=== PATIENT | female | born 1980 | race Two or more races ===

== ENCOUNTER 2021-10-31 21:26 | Inpatient (IN) | payer MEDICAID ==
[~2021-10-31] VITALS: Ht 162.6 cm; Wt 65.8 kg
--- NOTE | 2021-10-31 22:00 | NUR ---
BIBRA 860 FROM C.O GEN ABD PAIN. PATIENT PRESENTS WITH JAUNDICE. AWAKE, ALERT, AND SLIGHTLY LETHARGIC. ALSO COMPLAINING OF ABDOMINAL PAIN. PATIENT HOOKED UP TO BED SIDE MONITOR. MD AT BEDSIDE.
[2021-10-31 22:25] LABS: BASOPHILS % (AUTO) 0.1 % (0.0-2.0); EOSINOPHILS % (AUTO) 0.3 % (0.0-6.0); HEMATOCRIT 30 % (33-45); HEMOGLOBIN 10.1 g/dL (11.5-14.8); LYMPHOCYTES # (AUTO) 0.9 K/uL (0.8-4.8); LYMPHOCYTES % (AUTO) 4.6 % (20.0-44.0); MEAN CORPUSCULAR HGB CONC 34 g/dl (31.0-36.0); MEAN CORPUSCULAR VOLUME 114 fL (82-100); MONOCYTES # (AUTO) 0.9 K/uL (0.1-1.30); MONOCYTES % (AUTO) 4.8 % (2.0-12.0); NEUTROPHILS # (AUTO) 17.3 K/uL (1.8-8.9); NEUTROPHILS % (AUTO) 90.2 % (43.0-81.0); PLATELET COUNT (AUTO) 166 K/uL (150-450); RED BLOOD CELL COUNT(AUTO) 2.59 MIL/uL (4.0-5.2); WHITE BLOOD COUNT (AUTO) 19.1 K/uL (4.3-11.0)
[2021-10-31] MEDS ORDERED: IV NS 0.9% 1,000 ML BAG IV ONE (22:30)
[2021-10-31] MEDS ORDERED: ONDANSETRON HCL/PF 4 MG/2 ML VIAL IVP ONE (22:30)
--- NOTE | 2021-10-31 22:30 | NUR ---
20G RIGHT UPPER ARM, 22G LEFT WRIST PIV
[2021-10-31] MEDS ORDERED: ONDANSETRON HCL/PF 4 MG/2 ML VIAL ONE (22:35)
[2021-10-31 22:48] LABS: CALCIUM, SERUM 8.1 mg/dL (8.5-10.1); CREATININE 1.9 mg/dL (0.6-1.3)
[2021-10-31 22:50] LABS: POTASSIUM 2.7 mmol/L (3.5-5.1)
[2021-10-31] MEDS ORDERED: POTASSIUM CHLORIDE 10 MEQ/50 ML PREMIXED IVPB FOR PERIPHERAL LINE IV ONE (23:00)
[2021-10-31] MEDS ORDERED: POTASSIUM CHLORIDE 20 MEQ TAB.PRT.SR PO ONE (23:00)
[2021-10-31 23:02] LABS: BILIRUBIN,DIRECT 23.7 mg/dL (0.0-0.2); BILIRUBIN,TOTAL 29.9 mg/dL (0.2-1.0); TOTAL PROTEIN, SERUM 6.6 g/dL (6.4-8.2)
[2021-10-31] MEDS ORDERED: POTASSIUM CL. PREMIX PERIPHER. 50 ML ONE (23:03)
[2021-10-31 23:04] LABS: ALBUMIN 1.4 g/dL (3.4-5.0)
[2021-10-31] MEDS ORDERED: ALBUMIN 25% 50 ML IV ONE (23:19)
[2021-10-31] MEDS ORDERED: LACTULOSE 10 G/15 ML UDC (PYXIS) ONE (23:19)
[2021-10-31] MEDS ORDERED: RIFAXIMIN 200 MG TABLET PO ONE (23:30)
[2021-10-31] MEDS ORDERED: ALBUMIN 25% 12.5 GM/50 ML BOTTLE IV ONE (23:30)
[2021-10-31] MEDS ORDERED: LACTULOSE 10 G/15 ML UDC (PYXIS) PR ONE (23:30)
--- NOTE | 2021-10-31 23:39 | NUR ---
patient taken by radiology for CT via gurney
--- NOTE | 2021-11-01 00:21 | NUR ---
CRITICAL LAB: HEMOGLOBIN 9.2, HCT 27, RBC 2.36 MD MADE AWARE
--- NOTE | 2021-11-01 00:26 | NUR ---
indwelling desouza catheter inserted. sterile procedure observed.
--- NOTE | 2021-11-01 00:27 | NUR ---
rifaximin 550 mg not available per distribution warehouse manager. MD mckinley aware.
--- NOTE | 2021-11-01 00:30 | NUR ---
urine collected. called lab for seed cone picker.
[2021-11-01] MEDS ORDERED: ONDANSETRON HCL/PF 4 MG/2 ML VIAL IVP PRN (02:00)
[2021-11-01] MEDS ORDERED: ZOLPIDEM TARTRATE 5 MG TABLET PO PRN (02:00)
[2021-11-01] MEDS ORDERED: MAGNESIUM HYDROXIDE 30 ML UDC PO PRN (02:00)
[2021-11-01] MEDS ORDERED: MORPHINE SULFATE INJ 2 MG/ML DISP.SYRIN IV PRN (02:00)
[2021-11-01 02:12] LABS: BILIRUBIN,URINE LARGE (NEGATIVE); COLOR,URINE DARK YELLOW (YELLOW); LEUKOCYTE ESTERASE ,URINE MODERATE (NEGATIVE); NITRITE, URINE POSITIVE (NEGATIVE); PH,URINE 6.5 (5.0-8.0); PROTEIN,URINE 100 mg/dl (NEGATIVE); UGLUCOSE 100 MG/DL mg/dL (NEGATIVE)
[2021-11-01 02:19] LABS: BACTERIA,URINE Few /HPF (None Seen); COARSE GRANULAR CASTS,URINE Moderate /LPF (None Seen); SQUAMOUS EPITHELIAL CELL,UR Moderate /HPF (None Seen)
--- NOTE | 2021-11-01 03:32 | NUR ---
followed up with statrad
--- NOTE | 2021-11-01 04:14 | NUR ---
Dr. Mario Alberto [place] for Surgery Consult
[2021-11-01] MEDS: IV D5/ 0.9% NACL 1,000 ML IV PRN ×2 (04:25→16:43)
[2021-11-01] MEDS ORDERED: PIPERACILLIN /TAZOBACTAM 3.375 G VIAL IV ONE (04:26)
--- NOTE | 2021-11-01 04:40 | NUR ---
still no awaiting for call back from Dr. Llanes
--- NOTE | 2021-11-01 04:50 | NUR ---
RN NOTES ADMITTED FROM ER VIA GURNEY. PATIENT IS A/O X3 ABLE TO MAKE NEEDS KNOWN. WITH IV ACCESS AT R AC # 18, L WRIST # 22 PATENT FLUSHES WELL. WITH ONGOING IVF OF D5 NS @ 100 CC/HR. ON ROOM AIR SATING 98%. NO SOB NO DISTRESS, NO PAIN NOTED AT THIS TIME. WITH PALACIOS CATHETER CONNECTED TO URINE BAG WITH DARK YELLOW URINE OUTPUT. PATIENT WITH JAUNDICE. SAFELY TRANSFER TO BED. VITAL SIGNS TAKEN AND RECORDED. BP 87/54 MMHG. HR 89. BODY ASSESSMENT DONE. PICTURE TAKEN AND FILED. ALL BELONGINGS CHECKED AND ACCOUNTED. ALL SAFETY MEASURES IN PLACE AT ALL TIMES. HOB ELEVATED. CALL LIGHT WITHIN REACH. BED ON LOWEST POSITION AND LOCKED.
--- NOTE | 2021-11-01 04:54 | NUR ---
report was given to JOSÉ LUIS RNMax. Patient transferred. ACLS protocol followed.
[2021-11-01 04:58] LABS: BAND % (MANUAL) 5 % (0.0-5.0); BASOPHILS % (MANUAL) 0 % (0.0-2.0); EOSINOPHILS % (MANUAL) 0 % (0-4); LYMPHOCYTES % (MANUAL) 4 % (16-48); MONOCYTES % (MANUAL) 3 % (0-11.0); NEUTROPHILS % (MANUAL) 88 (42-76)
[2021-11-01] MEDS ORDERED: PIPERACILLIN /TAZOBACTAM 3.375 G in IV D5W 50 ML IV SCH ×2 (05:00→13:00)
--- NOTE | 2021-11-01 06:54 | NUR ---
RN NOTES PATIENT REMAINS STABLE NO SIGNIFICANT CHANGES. PATIENT FOR HYDA SCAN TODAY. ALL NEEDS ATTENDED. KEPT CLEAN AND DRY. PATIENT ON NPO. STILL WITH IV AT D5 NS @ 100 CC/HR. ALL SAFETY MEASURES IN PLACE AT ALL TIMES. HOB ELEVATED. CALL LIGHT WITHIN REACH. BED ON LOWEST POSITION AND LOCKED. WILL ENDORSED TO MORNING SHIFT FOR ARTHUR
--- NOTE | 2021-11-01 07:30 | NUR ---
RN NOTES PT FOUND SUPINE DISPLAYING NO S/S OF DISTRESS, PT ENDORSES NO PAIN AND BREATHING EVEN AND UNLABORED ON RA. PT IS A&OX2 PERSON AND TIME. MORNING VS FOUND LOW BP, 79/49. RN ASSESSED PULSES, FOUND WEAK RADIAL AND ABSENT DORSALIS PEDIS. MANUAL BP FOUND 96/64. MD NOTIFIED. WAITING ORDERS. R AC 18G IS PATIENT AND INTACT. PALACIOS CATH RESERVOIR BELOW PATIENT DRAINING BY GRAVITY WITH TEA COLORED URINE. RN WILL CONTINUE CARE PLAN AND ANTICIPATE NEEDS. SAFETY MEASURES IN PLACE, BED LOCKED AND IN LOWEST POSITION, SIDE RAILS UPX2, CALL LIGHT WITHIN REACH, BED ALARM ARMED.
[2021-11-01 08:00] VITALS: BP 96/64
[2021-11-01] MEDS: PANTOPRAZOLE 40 MG VIAL IV SCH (09:07)
[2021-11-01 16:00] VITALS: BP 87/56
[2021-11-01] MEDS: PIPERACILLIN /TAZOBACTAM 3.375 G in IV D5W 100 ML IV SCH (16:43)
--- NOTE | 2021-11-01 19:10 | NUR ---
RN NOTES RECEIVED REPORT FROM MORNING RN. PATIENT IN BED A/O X3 ABLE TO MAKES NEED KNOWN. NO SOB NO DISTRESS NOTED AT THIS TIME. WITH IV ACCESS AT R AC # 18, L WRIST # 22 PATENT FLUSHES WELL ONM CONTINUOS IVF D5NS @ 100 CC/HR. STILL ON NPO. WITH PALACIOS CATHETER CONNECTED TO URINE BAG DRAINING DARK YELLOW URINE. ALL SAFETY MEASURES IN PLACE AT ALL TIMES. HOB ELEVATED. CALL LIGHT WITHIN REACH. BED ON LOWEST POSITION AND LOCKED. WILL CLOSELY MONITOR THE PATIENT
--- NOTE | 2021-11-01 19:20 | NUR ---
RN NOTES PT FOUND SUPINE DISPLAYING NO S/S OF DISTRESS, PT ENDORSES NO PAIN AND BREATHING EVEN AND UNLABORED ON RA. PT MORE ALERT, ABLE TO ANSWER COMPLEX QUESTIONS. R AC 18G IS PATIENT AND INTACT. PALACIOS CATH RESERVOIR BELOW PATIENT DRAINING BY GRAVITY WITH TEA COLORED URINE. SBAR AND REPORT GIVEN TO TOE PULLER RN, ALL QUESTIONS ANSWERED. SAFETY MEASURES IN PLACE, BED LOCKED AND IN LOWEST POSITION, SIDE RAILS UPX2, CALL LIGHT WITHIN REACH, BED ALARM ARMED. PT ENDORSED IN STABLE CONDITION FOR ARTHUR.
[2021-11-02] VITALS: BP 89/55
[2021-11-02] MEDS: PIPERACILLIN /TAZOBACTAM 3.375 G in IV D5W 100 ML IV SCH ×2 (05:16→17:38)
[2021-11-02] MEDS: IV D5/ 0.9% NACL 1,000 ML IV PRN ×2 (06:00→16:37)
--- NOTE | 2021-11-02 07:10 | NUR ---
RN NOTE RECEIVED PATIENT IN BED RESTING ALERT ORIENTED X3 VERBALLY RESPONSIVE ON ROOM AIR O2:98% IV SITE IS ON RIGHT AC AND LEFT WRIST INTACT PATENT ON D5NS 100CC/HR IV HYDRATION,NPO,PALACIOS CATH IN PLACE URINE DRAINING BY GRAVITY,SAFETY MEASURE IMPLEMENT HEAD OF THE BED ELEVATED,BED IN LOW POSITION AND LOCKED,CALL LIGHT WITHIN REACH CONTINUE TO MONITOR.
[2021-11-02 07:17] LABS: EOSINOPHILS % (AUTO) 1.7 % (0.0-6.0); HEMATOCRIT 23 % (33-45); HEMOGLOBIN 7.9 g/dL (11.5-14.8); LYMPHOCYTES # (AUTO) 0.6 K/uL (0.8-4.8); LYMPHOCYTES % (AUTO) 5.3 % (20.0-44.0); MEAN CORPUSCULAR HGB CONC 34 g/dl (31.0-36.0); MEAN CORPUSCULAR VOLUME 114 fL (82-100); MONOCYTES # (AUTO) 0.7 K/uL (0.1-1.30); MONOCYTES % (AUTO) 6.3 % (2.0-12.0); NEUTROPHILS # (AUTO) 10.3 K/uL (1.8-8.9); NEUTROPHILS % (AUTO) 86.7 % (43.0-81.0); PLATELET COUNT (AUTO) 146 K/uL (150-450); RED BLOOD CELL COUNT(AUTO) 2.03 MIL/uL (4.0-5.2); WHITE BLOOD COUNT (AUTO) 11.8 K/uL (4.3-11.0)
[2021-11-02 07:30] LABS: BILIRUBIN,TOTAL 22.4 mg/dL (0.2-1.0); CALCIUM, SERUM 7.1 mg/dL (8.5-10.1); CREATININE 1.9 mg/dL (0.6-1.3); MAGNESIUM 2.2 mg/dL (1.8-2.4); PHOSPHORUS 3.8 mg/dL (2.5-4.9); TOTAL PROTEIN, SERUM 4.9 g/dL (6.4-8.2)
[2021-11-02 07:44] LABS: ALBUMIN 1.1 g/dL (3.4-5.0); POTASSIUM 2.1 mmol/L (3.5-5.1)
[2021-11-02 08:00] VITALS: BP 116/73
[2021-11-02] MEDS: PANTOPRAZOLE 40 MG VIAL IV SCH (08:01)
--- NOTE | 2021-11-02 09:00 | NUR ---
RN NOTE NOTIFIED DR FELIX MARTINEZ, POTASSIUM IS 2.1 CONTINUE TO MONITOR.
[2021-11-02 11:06] LABS: BAND % (MANUAL) 4 % (0.0-5.0); LYMPHOCYTES % (MANUAL) 8 % (16-48); MONOCYTES % (MANUAL) 5 % (0-11.0); NEUTROPHILS % (MANUAL) 83 (42-76)
[2021-11-02] MEDS ORDERED: POTASSIUM CHLORIDE 20 MEQ TAB.PRT.SR PO SCH ×4 (11:30→16:00)
[2021-11-02] MEDS: POTASSIUM CL. PREMIX PERIPHER. 50 ML IV SCH ×6 (12:24→17:56)
[2021-11-02 16:00] VITALS: BP 85/53
--- NOTE | 2021-11-02 18:34 | NUR ---
RN NOTE PATIENT REMAINS ON ALERT ORIENTED X3 VERBALLY RESPONSIVE,ON ROOM AIR NO SOB NOT ACUTE DISTRESS NOTED,ALL DUE MEDS GIVEN MD ORDERED,POTASSIUM REPLACED,ALL NEEDS MET,KEPT CLEAN AND DRY ALL THE TIME,KEPT CALL LIGHT WITHIN REACH, ENDORSE NEXT COMING SHIFT FOR CONTINUATION OF CARE.
--- NOTE | 2021-11-02 19:10 | NUR ---
RN OPENING NOTE PATIENT IN BED, EYES CLOSED. PATIENT EASILY AWAKENED. A/O X 3 AT THIS TIME, ABLE TO MAKE NEEDS KNOWN. PATIENT NPO FOR POSS PARACENTESIS. PATIENT HAS A RAC 18 G AND L WRIST 22 G PATENT AND INTACT, WITH ONGOING D5NS 100 ML/HR. PATIENT DOES NOT REPORT ANY PAIN OR DISCOMFORT AT THIS TIME SAFETY MEASURES IN PLACE: BED LOCKED AND IN LOWEST POSITION, CALL LIGHT WITHIN REACH, SIDE RAILS UP.
[2021-11-02 20:00] VITALS: BP 83/51
--- NOTE | 2021-11-02 20:45 | NUR ---
RN NOTE NOTIFIED MD OF PATIENT'S LOW BP 83/51 AND 84/52. NO NEW ORDERS FROM MD
[2021-11-03 04:00] VITALS: BP 87/50
[2021-11-03] MEDS: PIPERACILLIN /TAZOBACTAM 3.375 G in IV D5W 100 ML IV SCH ×2 (05:58→16:10)
[2021-11-03] MEDS: IV D5/ 0.9% NACL 1,000 ML IV PRN ×2 (05:58→20:13)
[2021-11-03 06:27] LABS: BASOPHILS % (AUTO) 0.2 % (0.0-2.0); EOSINOPHILS % (AUTO) 1.9 % (0.0-6.0); HEMATOCRIT 26 % (33-45); HEMOGLOBIN 8.8 g/dL (11.5-14.8); LYMPHOCYTES # (AUTO) 0.6 K/uL (0.8-4.8); LYMPHOCYTES % (AUTO) 4.2 % (20.0-44.0); MEAN CORPUSCULAR HGB CONC 34 g/dl (31.0-36.0); MEAN CORPUSCULAR VOLUME 114 fL (82-100); MONOCYTES % (AUTO) 6.7 % (2.0-12.0); PLATELET COUNT (AUTO) 170 K/uL (150-450); RED BLOOD CELL COUNT(AUTO) 2.25 MIL/uL (4.0-5.2); WHITE BLOOD COUNT (AUTO) 14.9 K/uL (4.3-11.0)
--- NOTE | 2021-11-03 06:50 | NUR ---
RN CLOSING NOTE PATIENT IN BED, AWAKE. A/O X 3 AT THIS TIME, ABLE TO MAKE NEEDS KNOWN. PATIENT IS ON RA, TOLERATING WELL. PATIENT HAS A RAC 18 G AND L WRIST 22 G PATENT AND INTACT, WITH ONGOING D5NS 100 ML/HR. PATIENT DOES NOT REPORT ANY PAIN OR DISCOMFORT AT THIS TIME. PALACIOS CATH IN PLACE DRAINING YELLOW/LATOYA URINE VIA GRAVITY. SAFETY MEASURES IN PLACE: BED LOCKED AND IN LOWEST POSITION, CALL LIGHT WITHIN REACH, SIDE RAILS UP. ALL NEEDS MET AND ATTENDED. ALL ORDERS CARRIED OUT. WILL ENDORSE TO DAY SHIFT NURSE FOR ARTHUR.
[2021-11-03 07:23] LABS: BILIRUBIN,TOTAL 24.7 mg/dL (0.2-1.0); CALCIUM, SERUM 7.4 mg/dL (8.5-10.1); CREATININE 1.8 mg/dL (0.6-1.3); PHOSPHORUS 2.8 mg/dL (2.5-4.9); TOTAL PROTEIN, SERUM 5.3 g/dL (6.4-8.2)
[2021-11-03 07:29] LABS: ALBUMIN 1.2 g/dL (3.4-5.0); POTASSIUM 2.7 mmol/L (3.5-5.1)
--- NOTE | 2021-11-03 07:40 | NUR ---
Labl called in stated her potassium 2.7 albumin 1.2 left message and waiting for retuning call back
--- NOTE | 2021-11-03 07:44 | NUR ---
RN open note . Patient is at bed , alert oriented times 3 ,, patient is on room air , tolerating well, breath even and un labored . Patient denies any pain or discomfort, no sighs of distress..Patient has R and L buttox redness , waiting for the wound consult, groin area is red, patient is risk for fall, bed alarm is on , patient has Landers Cath , with carlyle color urine , has ascitics r.y liven cirrhosis . Patient is NPO due to sceduled for surgical procedure od cholecystectomy, has IV access, R arm AC 18 G , has DS NS running at 100 ml /hr , on the L wrist22 g SL , Bed is at lowest position , bed side rails are up.call light within reach
--- NOTE | 2021-11-03 07:55 | NUR ---
called in and orders given and carried out
[2021-11-03 08:00] VITALS: BP 102/83
[2021-11-03] MEDS: PANTOPRAZOLE 40 MG VIAL IV SCH (09:33)
[2021-11-03] MEDS ORDERED: POTASSIUM CHLORIDE 20 MEQ TAB.PRT.SR PO ONE (10:00)
[2021-11-03 10:20] LABS: LYMPHOCYTES % (MANUAL) 5 % (16-48); MONOCYTES % (MANUAL) 14 % (0-11.0); NEUTROPHILS % (MANUAL) 81 (42-76)
--- NOTE | 2021-11-03 12:00 | NUR ---
RN NOTES RECEIVED PT ON BED, CONTINUE TO MONITOR
[2021-11-03 16:00] VITALS: BP 97/64
--- NOTE | 2021-11-03 18:36 | NUR ---
RN NOTES NO SIGNFICANT CHANGES NOTED ON THIS SHIFT, WILL ENDORSE TO TANNING SOLUTION MAKER NURSE FOR CONTINUITY OF CARE .
[2021-11-03 20:00] VITALS: BP 107/68
[2021-11-03] MEDS: ANCEF 1 GM/50 ML D5W IV SCH ×2 (20:14)
--- NOTE | 2021-11-03 23:46 | NUR ---
JOSÉ LUIS/RN PATIENT IS SLEEPING AT THIS TIME, APPEARS COMFORTABLE, NO SIGNS OF DISTRESS NOTED, CALL LIGHT IN REACH, WILL CONTINUE TO MONITOR.
[2021-11-04] VITALS (10 sets, daily range): BP systolic 97–126; BP diastolic 47–82
--- NOTE | 2021-11-04 01:15 | NUR ---
RN RECEIVING OF TRANSFER FROM [facility] NOTE PATIENT RECIEVED FROM [facility]IA [facility]P BED. A/OX2. NO S/S OF DISTRESS, BREATHING W/O DIFFICULTY ON 2L NC. L-WRIST #22 INTACT AND PATENT W/ D5NS 100ML/HR. B-BUTTOCK BANDAGE WAS SOILED - PATIENT CLEANED AND NEW DRESSING APPLIED. SAFETY MEASURES IN PLACE: BED LOCKED, AT LOWEST POSITION, RAILS UP X2, CALL MILES WITHIN REACH. VS STABLE: T 97.9; HR 85, RESP 20, BP 106/56, O2SAT 100%. ALTHOUGH PATIENT HAS ALREADY SPENT TIME IN HOSPITAL IN [facility] UNIT, PATIENT WAS ORIENTED TO 3W UNIT, GIVEN CALL MILES AND INSTRUCTED ON ITS USE. BELONGINGS ACCOUNTED FOR, LOGGED INTO SHEET, AND PLACED IN CHART. WILL CONTINUE TO MONITOR PATIENT.
--- NOTE | 2021-11-04 01:39 | NUR ---
JOSÉ LUIS/RN PATIENT WAS MOVED TO [address] [place] [address] [id number] AT AROUND 0120. REPORT WAS GIVEN TO IVETTE QUINTANILLA, AT BEDSIDE.
--- NOTE | 2021-11-04 02:20 | NUR ---
RN NOTE PATIENT HAD A THORACENTESIS ON 11/01/21 WHEREIN FLUID COLLECTION WAS DONE. SPECIMEN WAS NEVER SENT AND IS NO LONGER VIABLE FOR ANALYSIS. SPECIMEN DISPOSED OF PROPERLY PER PROTOCOL. Addendum: 11/04/21 at 0313 by DWIGHT HAYDEN RN LAB HAD BEEN CONTACTED, AND NECESSARY INFORMATION THAT IS NEEDED FOR LABELING IS ALSO NOT AVAILABLE.
--- NOTE | 2021-11-04 06:38 | NUR ---
RN CLOSING NOTE PATIENT AWAKE IN BED. A/OX2. NO S/S OF DISTRESS, BREATHING W/O DIFFICULTY ON RM AIR (100%). L-WRIST #22 INTACT AND PATENT W/ D5NS 100ML/HR. SAFETY MEASURES IN PLACE: BED LOCKED, IN LOWEST POSITION, RAILS UP X2, CALL MILES WITHIN REACH. REPORT GIVEN TO AND ACKNOWLEDGED BY SIA RNCARMENZA, FOR ARTHUR.
--- NOTE | 2021-11-04 07:10 | NUR ---
MS RN OPENING NOTE: PATIENT RECEIVED IN BED, AWAKE A/O X 3. ABLE TO MAKE NEEDS KNOWN. PT. IN NO APPARENT DISTRESS OR DISCOMFORT. ON 2L N/C, BREATHING EVEN AND UNLABORED. ON REGULAR DIET. PATIENT HAS RAC 18G, SALINE LOCKED, PATENT AND FLUSHING WELL; AND L WRIST 22 G PATENT AND INTACT, WITH D5NS RUNNING @ 100 ML/HR. NO SIGNS OF INFILTRATION OR PHLEBITIS NOTED. PT. NOTED TO HAVE JAUNDICE AND DISTENDED ABDOMEN. PATIENT DOES NOT REPORT ANY PAIN OR DISCOMFORT AT THIS TIME. SAFETY MEASURES IN PLACE: BED LOCKED AND IN LOWEST POSITION, CALL LIGHT WITHIN REACH, SIDE RAILS UP X2. WILL CONTINUE TO MONITOR.
[2021-11-04 07:12] LABS: BASOPHILS % (AUTO) 0.3 % (0.0-2.0); EOSINOPHILS % (AUTO) 2.1 % (0.0-6.0); HEMATOCRIT 25 % (33-45); HEMOGLOBIN 8.6 g/dL (11.5-14.8); LYMPHOCYTES # (AUTO) 0.7 K/uL (0.8-4.8); LYMPHOCYTES % (AUTO) 4.8 % (20.0-44.0); MEAN CORPUSCULAR HGB CONC 34 g/dl (31.0-36.0); MEAN CORPUSCULAR VOLUME 114 fL (82-100); MONOCYTES # (AUTO) 0.9 K/uL (0.1-1.30); MONOCYTES % (AUTO) 6.1 % (2.0-12.0); NEUTROPHILS # (AUTO) 12.9 K/uL (1.8-8.9); NEUTROPHILS % (AUTO) 86.7 % (43.0-81.0); PLATELET COUNT (AUTO) 167 K/uL (150-450); RED BLOOD CELL COUNT(AUTO) 2.21 MIL/uL (4.0-5.2); WHITE BLOOD COUNT (AUTO) 14.8 K/uL (4.3-11.0)
[2021-11-04 07:55] LABS: BILIRUBIN,TOTAL 24.7 mg/dL (0.2-1.0); CALCIUM, SERUM 7.5 mg/dL (8.5-10.1); CREATININE 1.6 mg/dL (0.6-1.3); MAGNESIUM 1.9 mg/dL (1.8-2.4); PHOSPHORUS 2.9 mg/dL (2.5-4.9); TOTAL PROTEIN, SERUM 5.3 g/dL (6.4-8.2)
[2021-11-04 08:03] LABS: ALBUMIN 1.2 g/dL (3.4-5.0)
[2021-11-04] MEDS: PANTOPRAZOLE 40 MG VIAL IV SCH (08:08)
[2021-11-04] MEDS: ANCEF 1 GM/50 ML D5W IV SCH ×2 (08:08)
[2021-11-04] MEDS ORDERED: PANTOPRAZOLE 40 MG TABLET.DR PO SCH (09:00)
[2021-11-04] MEDS ORDERED: POTASSIUM CHLORIDE 20 MEQ TAB.PRT.SR PO SCH (10:00)
[2021-11-04] MEDS: IV D5/ 0.9% NACL 1,000 ML IV PRN ×2 (10:21→23:38)
[2021-11-04] MEDS: Z GUARD REMEDY 4 OZ OINT TP PRN (10:24)
--- NOTE | 2021-11-04 10:31 | NUR ---
WOUND CARE CONSULT: PT SEEN FOR SEVERE INCONTINENCE ASSOCIATED SKIN DAMAGE TO BUTTOCKS, PRESENT ON ADMISSION. RECOMMENDATIONS MADE FOR SKIN PROTECTION. DISCUSSED WITH NURSING STAFF. MD IN AGREEMENT WITH PLAN OF CARE. [facility]
[2021-11-04] MEDS ORDERED: POTASSIUM CHLORIDE 10 MEQ TABLET.SA PO ONE (11:00)
[2021-11-04] MEDS ORDERED: ANCEF 1 GM/50 ML D5W IV SCH ×2 (14:00)
--- NOTE | 2021-11-04 16:51 | NUR ---
MS RN NOTE: PT. JUST GOT BACK FROM [facility]. IN NO APPARENT DISTRESS OR DISCOMFORT. AWAITING FOR RESULTS.
--- NOTE | 2021-11-04 19:00 | NUR ---
MS RN CLOSING NOTE: PATIENT REMAINS IN BED, RESTING, LETHARGIC, ORIENTED X 3. ABLE TO MAKE NEEDS KNOWN. ON 2L N/C, BREATHING EVEN AND UNLABORED, SATURATING WELL. PATIENT HAS R AC 18G, SALINE LOCKED, PATENT AND FLUSHING WELL. SHE ALSO HAS A L WRIST 22G, PATENT AND INTACT, WITH D5NS RUNNING @ 100 ML/HR. NO SIGNS OF INFILTRATION OR PHLEBITIS NOTED. PT. HAS GENERALIZED JAUNDICE AND HAS DISTENDED ABDOMEN. PT. DOESN'T REPORT ANY PAIN OR DISCOMFORT AT THIS TIME. SAFETY MEASURES MAINTAINED: BED LOCKED AND IN LOWEST POSITION, CALL LIGHT WITHIN REACH, SIDE RAILS UP X2. WILL ENDORSE CONTINUITY OF CARE TO AERONAUTICAL ENGINEERING PROFESSOR RN.
--- NOTE | 2021-11-04 19:20 | NUR ---
RN NOTE PT IN BED, LETHARGIC, A/OX2, ABLE TO VERBALIZE, WITH SOME CONFUSION. REORIENTATION PROVIDED. RESPIRATIONS EVEN AND DEEP. ON O2 @2LPM VIA N/C. O2 SAT 98%. PT WITH NOTABLE ABD DISTENTION/ASCITES AND GEN JAUNDICED SKIN. PT DENIES ANY PAIN, DENIES N/V. IV ACCESS ON R-AC #18G AND L-WRIST #22G INTACT/PATENT/FLUSHES WELL. INFUSING D5NS @100ML/HR. WITH F/C IN PLACE, DRAINING DARK LATOYA URINE. PT ABLE TO TURN/REPOSITION SELF IN BED. NO ACUTE DISTRESS NOTED. SAFETY MEASURES IN PLACE. WILL CONT TO MONITOR.
[2021-11-04] MEDS: CEFTRIAXONE 1 G in IV D5W 50 ML IV SCH (21:00)
[2021-11-04 21:01] LABS: BILIRUBIN,URINE LARGE (NEGATIVE); COLOR,URINE DARK YELLOW (YELLOW); LEUKOCYTE ESTERASE ,URINE TRACE (NEGATIVE); NITRITE, URINE NEGATIVE (NEGATIVE); PROTEIN,URINE 30 mg/dl (NEGATIVE); UGLUCOSE 100 MG/DL mg/dL (NEGATIVE)
[2021-11-04 21:20] LABS: RBC,URINE 21-50 /HPF (0-2)
[2021-11-04 21:21] LABS: BACTERIA,URINE Many /HPF (None Seen); SQUAMOUS EPITHELIAL CELL,UR Moderate /HPF (None Seen)
[2021-11-04 21:22] LABS: HYALINE CASTS, URINE Few /LPF (None Seen)
[2021-11-04 21:26] LABS: CREATININE, URINE 97.7 MG/DL (30.0-125.0)
[2021-11-05] MEDS ORDERED: ZOSYN IVPB 3.375 G in IV D5W 50ml IV SCH ×2
[2021-11-05 06:34] LABS: BASOPHILS % (AUTO) 0.2 % (0.0-2.0); EOSINOPHILS % (AUTO) 1.6 % (0.0-6.0); HEMATOCRIT 25 % (33-45); HEMOGLOBIN 8.7 g/dL (11.5-14.8); LYMPHOCYTES # (AUTO) 0.6 K/uL (0.8-4.8); MEAN CORPUSCULAR HGB CONC 35 g/dl (31.0-36.0); MEAN CORPUSCULAR VOLUME 114 fL (82-100); MONOCYTES # (AUTO) 0.7 K/uL (0.1-1.30); MONOCYTES % (AUTO) 4.7 % (2.0-12.0); NEUTROPHILS # (AUTO) 14.2 K/uL (1.8-8.9); NEUTROPHILS % (AUTO) 89.5 % (43.0-81.0); PLATELET COUNT (AUTO) 164 K/uL (150-450); RED BLOOD CELL COUNT(AUTO) 2.19 MIL/uL (4.0-5.2); WHITE BLOOD COUNT (AUTO) 15.9 K/uL (4.3-11.0)
--- NOTE | 2021-11-05 07:30 | NUR ---
MS RN OPENING NOTES RECEIVED PATIENT ON BED, RESTING AND A/O X2-3, LETHARGIC. ABLE TO MAKE NEEDS KNOWN WITH SOME CONFUSION. REORIENTATION PROVIDED. ON O2 @2LPM VIA N/C TOLERATING WELL. WITH ABDOMINAL DISTENTION/ASCITES AND JAUNDICED SKIN. WITH NO COMPLAINTS OF PAIN OR DISCOMFORT AT THIS TIME. WITH IV ACCESS AT THE RIGHT AC G18 AND L-WRIST G22 INTACT/PATENT/FLUSHES WELL WITH IVF INFUSING D5NS @100ML/HR. WITH F/C IN PLACE, DRAINING DARK LATOYA URINE. SAFETY MEASURES IN PLACED. CALL LIGHT WITHIN REACH. BED ON LOWEST LOCKED POSITION, SIDE RAILS UP X2. WILL CONTINUE TO MONITOR.
[2021-11-05 07:54] LABS: CALCIUM, SERUM 7.6 mg/dL (8.5-10.1); CREATININE 1.4 mg/dL (0.6-1.3)
[2021-11-05 08:00] VITALS: BP 98/62
[2021-11-05] MEDS: PANTOPRAZOLE 40 MG TABLET.DR PO SCH (08:53)
[2021-11-05] MEDS: ENSURE ENLIVE 237 ML LIQUID (VANILLA) PO SCH (08:53)
--- NOTE | 2021-11-05 11:45 | NUR ---
RN NOTES US GUIDED PARACENTESIS WAS DONE AND REMOVED 2,350ML. WILL SEND TO THE LAB FOR LAB WORKS PER DOCTOR'S ORDER.
[2021-11-05] MEDS: IV D5/ 0.9% NACL 1,000 ML IV PRN (12:17)
[2021-11-05] MEDS: POTASSIUM CHLORIDE 20 MEQ TAB.PRT.SR PO SCH ×3 (13:36→16:24)
[2021-11-05 16:00] VITALS: BP 87/54
--- NOTE | 2021-11-05 18:09 | NUR ---
MS RN CLOSING NOTES PATIENT ON BED, RESTING AND A/O X2-3, LETHARGIC. ABLE TO MAKE NEEDS KNOWN WITH SOME CONFUSION. REORIENTATION PROVIDED. ON O2 @2LPM VIA N/C TOLERATING WELL. WITH ABDOMINAL DISTENTION/ASCITES AND JAUNDICED SKIN. S/P US GUIDED PARACENTESIS WITH 2,350ML FLUID OUT. WITH NO COMPLAINTS OF PAIN OR DISCOMFORT AT THIS TIME. WITH IV ACCESS AT THE RIGHT AC G18 AND L-WRIST G22 INTACT/PATENT/FLUSHES WELL WITH IVF INFUSING D5NS @100ML/HR. WITH F/C IN PLACE, DRAINING DARK LATOYA URINE. SAFETY MEASURES IN PLACED. CALL LIGHT WITHIN REACH. BED ON LOWEST LOCKED POSITION, SIDE RAILS UP X2. WILL ENDORSE TO NEXT SHIFT FOR ARTHUR.
--- NOTE | 2021-11-05 19:20 | NUR ---
RN NOTE PT IN BED, AWAKE, A/OX2, ABLE TO VERBALIZE NEEDS. RESPIRATIONS EVEN AND DEEP. ON O2 @2LPM VIA N/C. O2 SAT 98%. PT S/P PARACENTESIS EARLIER TODAY. PT DENIES PAIN, DENIES N/V. IV ACCESS ON R-AC #18G AND L-WRIST #22G INTACT/PATENT/FLUSHES WELL. WITH F/C IN PLACE, DRAINING DARK LATOYA URINE. PT ABLE TO TURN/REPOSITION SELF IN BED. NO ACUTE DISTRESS NOTED. SAFETY MEASURES IN PLACE. WILL CONT TO MONITOR.
[2021-11-05 20:00] VITALS: BP 91/57
[2021-11-05] MEDS: Potassium Chloride 20 MEQ in IV NS 0.9% 1,000 ML IV SCH (20:16)
[2021-11-05] MEDS: CEFTRIAXONE 1 G in IV D5W 50 ML IV SCH (21:16)
--- NOTE | 2021-11-06 07:00 | NUR ---
RN NOTE PT AWAKE IN BED, A/OX3, ABLE TO MAKE NEEDS KNOWN. RESPIRATIONS EVEN/UNLABORED. PT DENIES PAIN AT THIS TIME. IV SITE INTACT/PATENT, INFUSING KCL ORDERED. F/C DRAINING DARK LATOYA URINE, OUTPUT 350CC THIS SHIFT. PT IN NO ACUTE DISTRESS. ALL NEEDS ATTENDED TO. SAFETY MEASURES MAINTAINED.
--- NOTE | 2021-11-06 07:15 | NUR ---
MS RN OPENING NOTE: RECEIVED PATIENT IN BED, AWAKE, A/O X2-3. ABLE TO MAKE SIMPLE NEEDS KNOWN. ON O2 @ 2 L/MIN VIA N/C, BREATHING EVEN AND UNLABORED. PT. NOTED TO HAVE ABDOMINAL DISTENTION AND ASCITES WITH GENERALIZED JAUNDICE. PT. NOT COMPLAINING OF PAIN AT THIS TIME. HAS IV ACCESS ON THE RIGHT AC #18 G, INTACT, SALINE LOCKED, PATENT AND FLUSHING WELL; AND LEFT WRIST #22 G WITH IVF INFUSING NS W/ KCL 20MEQ RUNNING @ 75 ML/HR, PATENT WITH NO SIGNS OF PHLEBITIS AND INFILTRATION. PT. HAS F/C IN PLACE, PATENT & DRAINING DARK LATOYA URINE. SAFETY MEASURES AND PRESSURE ULCER PRECAUTIONS IN PLACE. CALL LIGHT WITHIN EASY REACH. BED IN LOWEST & LOCKED POSITION, SIDE RAILS UP X2. ENCOURAGED FREQUENT REPOSITIONING. WILL CONTINUE TO MONITOR.
[2021-11-06 07:16] LABS: BASOPHILS % (AUTO) 0.2 % (0.0-2.0); EOSINOPHILS % (AUTO) 1.4 % (0.0-6.0); HEMATOCRIT 23 % (33-45); HEMOGLOBIN 7.9 g/dL (11.5-14.8); LYMPHOCYTES # (AUTO) 0.7 K/uL (0.8-4.8); LYMPHOCYTES % (AUTO) 4.1 % (20.0-44.0); MEAN CORPUSCULAR HGB CONC 34 g/dl (31.0-36.0); MEAN CORPUSCULAR VOLUME 116 fL (82-100); MONOCYTES # (AUTO) 1.1 K/uL (0.1-1.30); MONOCYTES % (AUTO) 6.2 % (2.0-12.0); NEUTROPHILS # (AUTO) 15.5 K/uL (1.8-8.9); NEUTROPHILS % (AUTO) 88.1 % (43.0-81.0); PLATELET COUNT (AUTO) 166 K/uL (150-450); RED BLOOD CELL COUNT(AUTO) 2.02 MIL/uL (4.0-5.2); WHITE BLOOD COUNT (AUTO) 17.6 K/uL (4.3-11.0)
[2021-11-06 07:55] LABS: CALCIUM, SERUM 7.5 mg/dL (8.5-10.1); CREATININE 1.1 mg/dL (0.6-1.3); POTASSIUM 3.7 mmol/L (3.5-5.1)
[2021-11-06 08:00] VITALS: BP 92/61
[2021-11-06] MEDS: ENSURE ENLIVE 237 ML LIQUID (VANILLA) PO SCH (08:05)
[2021-11-06] MEDS: Potassium Chloride 20 MEQ in IV NS 0.9% 1,000 ML IV SCH ×2 (09:21→21:53)
[2021-11-06] MEDS: PANTOPRAZOLE 40 MG TABLET.DR PO SCH (09:36)
[2021-11-06] MEDS: PROSOURCE / PROSTAT (PYXIS) 30 ML UDC PO SCH ×3 (09:36→17:34)
[2021-11-06 16:00] VITALS: BP 106/64
[2021-11-06] MEDS ORDERED: ENSURE CLEAR 237 ML LIQUID (MIX BERRY) PO SCH (17:00)
--- NOTE | 2021-11-06 17:23 | NUR ---
MS RN NOTE: PT. HAS AN ORDER FOR HIDA SCAN. CONSENT SIGNED BY PT. INFORMED ADVERTISING DIRECTOR NINO. WILL ENDORSE TO PERSONAL CAREGIVER RN TO FOLLOW UP AGAIN IN THE AM.
--- NOTE | 2021-11-06 18:52 | NUR ---
MS RN CLOSING NOTE: PATIENT REMAINS IN BED, SLEEPING AT THIS TIME, A/O X3. IN NO APPARENT DISTRESS OR DISCOMFORT AT THIS TIME. ABLE TO MAKE NEEDS KNOWN. ON O2 @ 2 L/MIN VIA N/C, BREATHING EVEN AND UNLABORED. PT. NOT COMPLAINING OF PAIN AT THIS TIME. NO N/V THE ENTIRE SHIFT. HAS IV ACCESS ON THE RIGHT AC #18 G, INTACT, SALINE LOCKED, PATENT AND FLUSHING WELL; AND LEFT WRIST #22 G WITH IVF INFUSING NS W/ KCL 20MEQ RUNNING @ 75 ML/HR, PATENT AND HAS NO REDNESS OR INFLAMMATION ON SITE. PT. HAS F/C IN PLACE, PATENT & DRAINING DARK LATOYA AND GREENISH URINE WITH A TOTAL OUTPUT OF 200 ML THE ENTIRE SHIFT. SAFETY MEASURES AND PRESSURE ULCER PRECAUTIONS MAINTAINED: CALL LIGHT AND BELONGINGS WITHIN EASY REACH. BED IN LOWEST & LOCKED POSITION, SIDE RAILS UP X2. ENCOURAGED FREQUENT REPOSITIONING IN BED. WILL ENDORSE CONTINUITY OF CARE TO GREEK PROFESSOR RN.
[2021-11-06 20:00] VITALS: BP 95/55
[2021-11-06] MEDS: CEFTRIAXONE 1 G in IV D5W 50 ML IV SCH (20:16)
[2021-11-06 20:30] VITALS: BP 102/60
--- NOTE | 2021-11-06 22:04 | NUR ---
RN NOTES: PT. WENT FOR HIDA SCAN , NO ACUTE DISTRESS NOTED.
--- NOTE | 2021-11-06 23:38 | NUR ---
RN NOTES: PT. BACK FROM HIDA SCAN , NO ACUTE DISTRESS NOTED .
--- NOTE | 2021-11-07 00:21 | NUR ---
NURSE REPORT At 0000 am Care endorsed by IVETTE Bruce. Patient awake in bed, skin reassessment done. New photos of skin breakdown placed in the chart. Maintained skin precaution, turned and repositioned, offloading.
--- NOTE | 2021-11-07 05:31 | NUR ---
END OF SHIFT REPORT Patient Alert Oriented x3. Oxygen sat 98% on 2L NC. Jaundice skin. Abdomen still firm and distended. IVF infusing, on IV abx. Afebrile during the shift. Landers cath care done, frequent stool mucoid and soft, bilateral buttocks excoriation appears worsen than previous assessment (see new skin photos). Turned and repositioned, offloading, wound consult f/u. HIDA scan done, result pending. Will endorse to oncoming RN.
[2021-11-07 06:54] LABS: CALCIUM, SERUM 7.8 mg/dL (8.5-10.1); CREATININE 1.1 mg/dL (0.6-1.3); POTASSIUM 3.8 mmol/L (3.5-5.1)
[2021-11-07 07:03] LABS: BASOPHILS % (AUTO) 0.2 % (0.0-2.0); EOSINOPHILS % (AUTO) 0.6 % (0.0-6.0); HEMATOCRIT 26 % (33-45); HEMOGLOBIN 8.7 g/dL (11.5-14.8); LYMPHOCYTES # (AUTO) 0.9 K/uL (0.8-4.8); LYMPHOCYTES % (AUTO) 4.4 % (20.0-44.0); MEAN CORPUSCULAR HGB CONC 33 g/dl (31.0-36.0); MEAN CORPUSCULAR VOLUME 118 fL (82-100); MONOCYTES # (AUTO) 1.3 K/uL (0.1-1.30); MONOCYTES % (AUTO) 6.3 % (2.0-12.0); NEUTROPHILS # (AUTO) 18.1 K/uL (1.8-8.9); NEUTROPHILS % (AUTO) 88.5 % (43.0-81.0); PLATELET COUNT (AUTO) 168 K/uL (150-450); RED BLOOD CELL COUNT(AUTO) 2.22 MIL/uL (4.0-5.2); WHITE BLOOD COUNT (AUTO) 20.5 K/uL (4.3-11.0)
--- NOTE | 2021-11-07 07:15 | NUR ---
MS RN OPENING NOTE: RECEIVED PATIENT IN BED, AWAKE, LETHARGIC, ORIENTED X 2-3. IN NO ACUTE DISTRESS AT THIS TIME. ABLE TO MAKE NEEDS KNOWN. ON O2 @ 2 L/MIN VIA N/C, NO S/S OF RESPIRATORY DISTRESS. PT. HAS ABDOMINAL DISTENTION AND ASCITES WITH GENERALIZED JAUNDICE. PT. NOT COMPLAINING OF PAIN AT THIS TIME. PT. HAS IV ACCESS ON THE LEFT WRIST #22 G WITH IVF INFUSING NS W/ KCL 20MEQ RUNNING @ 75 ML/HR. IV PATENT WITH NO REDNESS, INFLAMMATION AND SIGNS OF INFILTRATION ON SITE. PT. HAS F/C IN PLACE, PATENT & DRAINING TEA-COLORED URINE. PT. HAS EXCORIATION ON BILATERAL BUTTOCKS, WOUND CARE TREATMENT IN PLACE AND FOLLOWED ORDERED. SAFETY MEASURES, FALL AND PRESSURE ULCER PRECAUTIONS IN PLACE. CALL LIGHT AND BELONGINGS WITHIN EASY REACH. BED IN LOWEST & LOCKED POSITION, SIDE RAILS UP X2, BED ALARM ON AND ENCOURAGED FREQUENT REPOSITIONING. WILL CONTINUE TO MONITOR.
--- NOTE | 2021-11-07 07:31 | NUR ---
WOUND CARE CONSULT/FOLLOW UP: PT CONTINUES TO PRESENT WITH INCONTINENCE ASSOCIATED SKIN DAMAGE TO BUTTOCKS FROM FREQUENT STOOLING. DISCUSSED AND DEMONSTRATED WOUND CARE/SKIN PROTECTION WITH NURSING STAFF. PALACIOS CATH NOTED. PT NOTED TO HAVE EXTREMELY FRAGILE SKIN WHICH TEARS EASILY. SOME EXCORIATED AREAS NOTED AROUND WAIST AREA. Z GUARD IN USE. PT IS ON [facility] LOW AIRLOSS BED. MD IN AGREEMENT WITH PLAN OF CARE. GENERAL SURGERY IS ON CASE.
[2021-11-07 08:00] VITALS: BP 94/55
[2021-11-07] MEDS: ENSURE ENLIVE 237 ML LIQUID (VANILLA) PO SCH (08:27)
[2021-11-07] MEDS: PROSOURCE / PROSTAT (PYXIS) 30 ML UDC PO SCH ×3 (08:27→17:43)
[2021-11-07] MEDS: PANTOPRAZOLE 40 MG TABLET.DR PO SCH (08:27)
--- NOTE | 2021-11-07 09:35 | NUR ---
MS RN NOTE: PT. VISITED BY DR. SIERRA AND DR. RIOJAS AT BEDSIDE. LOOKING AT POSSIBLE TRANSFER TO HIGHER LEVEL OF CARE. WILL WAIT FOR FURTHER INSTRUCTIONS.
[2021-11-07] MEDS: Z GUARD REMEDY 4 OZ OINT TP PRN ×2 (09:44→15:49)
[2021-11-07 12:00] VITALS: BP 98/60
[2021-11-07] MEDS: DOXYCYCLINE 100 MG in IV D5W 100 ML IV SCH ×2 (12:26→21:08)
[2021-11-07] MEDS: Potassium Chloride 20 MEQ in IV NS 0.9% 1,000 ML IV SCH (12:26)
--- NOTE | 2021-11-07 15:05 | NUR ---
MS RN NOTE: PT.'S #22G IV ON LEFT WRIST GOT DISLODGED. IV REMOVED PROPERLY AND INSERTED A NEW ONE ON THE RIGHT WRIST WITH #22G. NEW IV IS PATENT AND FLUSHING WELL. IVF OF NS + KCL 20MEQ RUNNING AT 75 ML/HR. WILL CONTINUE TO MONITOR IV SITE.
[2021-11-07 16:00] VITALS: BP 98/60
--- NOTE | 2021-11-07 17:39 | NUR ---
MS RN NOTE: PT. SIGNED INFORMED CONSENT FOR POSSIBLE ULTRASOUND GUIDED PARACENTESIS TOMORROW. WILL CONTINUE TO MONITOR.
--- NOTE | 2021-11-07 19:00 | NUR ---
MS RN CLOSING NOTE: PATIENT IN BED, RESTING AT THIS TIME. SHE IS LETHARGIC, ORIENTED X 2-3. IN NO ACUTE DISTRESS AT THIS TIME. ABLE TO VERBALIZE SIMPLE NEEDS. ON O2 @ 2 L/MIN VIA N/C, BREATHING EVEN AND UNLABORED. HAS ABDOMINAL DISTENTION AND ASCITES WITH GENERALIZED JAUNDICE. PT. NOT COMPLAINING OF PAIN AT THIS TIME. PT. HAS IV ACCESS ON THE RIGHT WRIST #22 G WITH IVF INFUSING NS W/ KCL 20MEQ RUNNING @ 75 ML/HR. IV IS PATENT WITH NO SIGNS OF INFECTION AND INFILTRATION. PT. HAS VERY POOR APPETITE AND ONLY CONSUMED PROSTAT THIS SHIFT. MD'S MADE AWARE. PT. HAS F/C IN PLACE, PATENT & DRAINING TEA-COLORED URINE WITH A TOTAL OUTPUT OF 120 ML THROUGHOUT THE SHIFT. PT.'S SKIN ISSUES ARE TREATED ORDERED BY FAST BRIM POUNCER. SAFETY MEASURES, FALL AND PRESSURE ULCER PRECAUTIONS MAINTAINED: CALL LIGHT AND BELONGINGS WITHIN EASY REACH. BED IN LOWEST & LOCKED POSITION, SIDE RAILS UP X2, BED ALARM ON AND ENCOURAGED FREQUENT REPOSITIONING. WILL ENDORSE CONTINUITY OF CARE TO RAW MILL OPERATOR RN.
--- NOTE | 2021-11-07 19:20 | NUR ---
RN NOTE PT IN BED, LETHARGIC, A/OX2, ABLE TO VERBALIZE AND ANSWER SIMPLE QUESTIONS. RESPIRATIONS EVEN/DEEP, ON O2 @2LPM VIA N/C. O2 SAT 99%. PT WITH ABD.DISTENTION/ASCITES AND GENERALIZED JAUNDICE. PT DENIES PAIN, DENIES N/V. IV ACCESS ON R-WRIST #22G INTACT/PATENT, INFUSING KCL ORDERED. WITH F/C IN PLACE, DRAINING DARK LATOYA URINE. PT ABLE TO TURN/REPOSITION SELF IN BED. NO ACUTE DISTRESS NOTED. SAFETY MEASURES IN PLACE. WILL CONT TO MONITOR.
--- NOTE | 2021-11-07 19:50 | NUR ---
RN NOTE VISITED BY HER BFRIANA
[2021-11-07 20:20] VITALS: BP 90/51
[2021-11-07] MEDS: CEFTRIAXONE 1 G in IV D5W 50 ML IV SCH (20:22)
--- NOTE | 2021-11-07 22:56 | NUR ---
RN NOTE IV ACCESS ON R-WRIST DISLODGED/REMOVED. REINSERTED NEW IV LINE ONTO R-FA #22G, WITH GOOD BLOOD RETURN, FOX WELL.
--- NOTE | 2021-11-08 00:24 | NUR ---
RN NOTE ENDORSED TO IVETTE ADAIR FOR CONTINUITY OF CARE
[2021-11-08] MEDS: Potassium Chloride 20 MEQ in IV NS 0.9% 1,000 ML IV SCH ×2 (00:57→14:49)
--- NOTE | 2021-11-08 06:48 | NUR ---
RN CLOSING NOTE PT IN BED, LETHARGIC, A/OX2, ABLE TO VERBALIZE AND ANSWER SIMPLE QUESTIONS. RESPIRATIONS EVEN/DEEP, ON O2 @2LPM VIA N/C. O2 SAT 99%. PT WITH ABD.DISTENTION/ASCITES AND GENERALIZED JAUNDICE. PT DENIES PAIN, DENIES N/V. IV ACCESS ON R-WRIST #22G INTACT/PATENT, INFUSING KCL ORDERED. WITH F/C IN PLACE, DRAINING DARK LATOYA URINE. PT ABLE TO TURN/REPOSITION SELF IN BED. NO ACUTE DISTRESS NOTED. SAFETY MEASURES IN PLACE. WILL ENDORSE CARE TO DAY SHIFT NURSE.
--- NOTE | 2021-11-08 07:35 | NUR ---
RN OPENING NOTE PATIENT IN BED, LETHARGIC, A/OX2, ABLE TO VERBALIZE AND ANSWER SIMPLE QUESTIONS. RESPIRATIONS EVEN/DEEP, ON O2 @2LPM VIA N/C. O2 SAT 99%. PT WITH ABD.DISTENTION/ASCITES AND GENERALIZED JAUNDICE. PT DENIES PAIN, DENIES N/V. IV ACCESS ON FOREARM 22G INTACT/PATENT. WITH PALACIOS CATHETER IN PLACE, DRAINING DARK LATOYA URINE. PT ABLE TO TURN/REPOSITION SELF IN BED. NO ACUTE DISTRESS NOTED. SAFETY MEASURES IN PLACE. WILL CONTINUE PLAN OF CARE AND ANTICIPATE NEEDS.
[2021-11-08 08:00] VITALS: BP 90/50
[2021-11-08] MEDS: ENSURE ENLIVE 237 ML LIQUID (VANILLA) PO SCH (08:21)
[2021-11-08] MEDS: PROSOURCE / PROSTAT (PYXIS) 30 ML UDC PO SCH ×3 (08:22→16:58)
[2021-11-08] MEDS: PANTOPRAZOLE 40 MG TABLET.DR PO SCH (08:22)
[2021-11-08] MEDS: DOXYCYCLINE 100 MG in IV D5W 100 ML IV SCH ×2 (08:22→23:32)
[2021-11-08 09:48] LABS: BASOPHILS % (AUTO) 0.1 % (0.0-2.0); EOSINOPHILS % (AUTO) 0.5 % (0.0-6.0); HEMATOCRIT 31 % (33-45); HEMOGLOBIN 9.2 g/dL (11.5-14.8); LYMPHOCYTES # (AUTO) 0.7 K/uL (0.8-4.8); MEAN CORPUSCULAR HGB CONC 30 g/dl (31.0-36.0); MEAN CORPUSCULAR VOLUME 128 fL (82-100); MONOCYTES % (AUTO) 5.9 % (2.0-12.0); NEUTROPHILS # (AUTO) 15.1 K/uL (1.8-8.9); NEUTROPHILS % (AUTO) 89.5 % (43.0-81.0); PLATELET COUNT (AUTO) 152 K/uL (150-450); RED BLOOD CELL COUNT(AUTO) 2.39 MIL/uL (4.0-5.2); WHITE BLOOD COUNT (AUTO) 16.9 K/uL (4.3-11.0)
[2021-11-08 09:55] LABS: CREATININE 1.2 mg/dL (0.6-1.3); POTASSIUM 3.9 mmol/L (3.5-5.1)
[2021-11-08] MEDS: ALBUMIN 25% 25 GM in PREMIX 1 EA IV SCH ×4 (15:02→21:15)
[2021-11-08 16:00] VITALS: BP 88/48
--- NOTE | 2021-11-08 18:52 | NUR ---
RN CLOSING NOTE PATIENT IN BED, LETHARGIC, A/OX2, ABLE TO VERBALIZE AND ANSWER SIMPLE QUESTIONS. RESPIRATIONS EVEN/DEEP, ON O2 @2LPM VIA N/C. O2 SAT 99%. PT WITH ABD.DISTENTION/ASCITES AND GENERALIZED JAUNDICE. PT DENIES PAIN, DENIES N/V. IV ACCESS ON FOREARM 22G INTACT/PATENT RUNNING KCL MIXED WITH NORMAL SALINE. WITH PALACIOS CATHETER IN PLACE, DRAINING DARK [place] URINE. PT ABLE TO TURN/REPOSITION SELF IN BED. NO ACUTE DISTRESS NOTED. SAFETY MEASURES IN PLACE. WILL ENDORSE TO NIGHTSHIFT RN FOR CONTINUATION OF CARE.
--- NOTE | 2021-11-08 19:10 | NUR ---
MS RN OPENING NOTES: RECEIVED PATIENT IN BED, ASLEEP, EASILY AROUSABLE. WEAK. PER REPORT FROM THE PREVIOUS SHIFT, PATIENT DID NOT EAT. FAMILY MEMBER AT THE BEDSIDE, TRIED TO FEED THE PATIENT. WITH O2 AT 2L. WITH PALACIOS CATHETER INTACT, DRAINING [place] COLORED URINE. BED ALARM ON. BED IN LOWEST AND LOCKED POSITION.
--- NOTE | 2021-11-08 19:10 | NUR ---
NO S/S OF DISTRESS NOTED. NO COMPLAIN OF PAIN.
[2021-11-08 20:00] VITALS: BP 84/52
[2021-11-08 20:45] VITALS: BP 84/52
[2021-11-08 21:22] VITALS: BP 84/53
[2021-11-08] MEDS: CEFTRIAXONE 1 G in IV D5W 50 ML IV SCH (22:07)
[2021-11-08 22:10] VITALS: BP 84/35
--- NOTE | 2021-11-08 22:20 | NUR ---
INFORMED DR GUERA STROUD RE: BP 84/35 HR 74, EARLIER WAS BP 84/53 HR 74, AND BP 84/52 HR 71.
[2021-11-08] MEDS ORDERED: ALBUMIN 25% 25 GM in PREMIX 1 EA IV ONE (23:30)
--- NOTE | 2021-11-08 23:30 | NUR ---
REQUEST FOR MED ALBUMIN SENT TO THE [facility] INST[facility] BY CHARGE NURSE BRUNO.
[2021-11-09] VITALS (24 sets, daily range): BP systolic 75–142; BP diastolic 26–92
[2021-11-09] MEDS ORDERED: ALBUMIN 25% 100 ML IV ONE ×2 (00:32→02:10)
--- NOTE | 2021-11-09 03:49 | NUR ---
INFORMED DR STROUD RE: BP 85/50 HR 87, TEMP=96.0 AXILLARY, AFTER ALBUMIN 50 GMS.
[2021-11-09] MEDS ORDERED: IV NS 0.9% 500 ML IV ONE (04:00)
[2021-11-09] MEDS: Z GUARD REMEDY 4 OZ OINT TP PRN (05:20)
--- NOTE | 2021-11-09 07:30 | NUR ---
MS RN OPENING NOTES RECEIVED PATIENT RESTING ON BED AND A/O X2, LETHARGIC WITH GENERALIZED JAUNDICE. NO SOB NOTED. WITH NO COMPLAINTS OF PAIN AT THIS TIME. WITH IV ACCESS AT RIGHT FOREARM G22 WITH IVF NS + 20MEQ KCL AT 75ML/HR INFUSING WELL. SAFETY MEASURES IN PLACED. CALL LIGHT WITHIN REACH. BED ON LOWEST LOCKED POSITION, SIDE RAILS UP X2. WILL CONTINUE TO MONITOR.
[2021-11-09] MEDS: ENSURE ENLIVE 237 ML LIQUID (VANILLA) PO SCH (08:00)
--- NOTE | 2021-11-09 08:00 | NUR ---
RN NOTE PATIENT'S BLOOD PRESSURE IS 75/46. PATIENT HAS RECEIVED ALBUMIN AND NS IV BOLUS FROM THE AIR CONDITIONING SPECIALIST BUT STILL HAS LOW BP AND VERY LETHARGIC. PATIENT REFUSED PO MEDS. WILL REPORT TO THE DOCTOR. WILL MONITOR.
--- NOTE | 2021-11-09 08:10 | NUR ---
RN NOTE REPORTED TO DR. RIOJAS AND ORDERED PATIENT FOR TRANSFER TO ICU.
[2021-11-09] MEDS: PROSOURCE / PROSTAT (PYXIS) 30 ML UDC PO SCH ×3 (08:41→17:00)
[2021-11-09] MEDS: PANTOPRAZOLE 40 MG TABLET.DR PO SCH (08:41)
[2021-11-09] MEDS: DOXYCYCLINE 100 MG in IV D5W 100 ML IV SCH ×2 (08:41→21:18)
[2021-11-09] MEDS ORDERED: LACTULOSE 10 G/15 ML UDC (PYXIS) PO PRN (09:00)
[2021-11-09 09:42] LABS: ABG OXYGEN SATURATION 95.4 % (92.0-98.5); ABG PCO2 20.9 mmHg (35.0-45.0); ABG PH 7.325 (7.350-7.450); ABG PO2 85.7 mmHg (75.0-100.0); AaDO2 96.5 mmHg; COHb 2.4 % (0.5-1.5); MetHb 0.4 % (0.0-1.5); O2Hb 92.7 % (94.0-97.0); SITE, ABG Left Radial; VENT MODE, BG 2L NC
--- NOTE | 2021-11-09 10:00 | NUR ---
RN NOTE TRANSFERRED PATIENT TO THE ICU AND ENDORSED TO IVETTE LEIVA. PATIENT IS LETHARGIC WITH LATEST BP OF 80/54, IN-91, T-97.2, O2 SAT-100% AND RR-30. PT ON 02 AT 2LPM SATURATING AT 100%. WITH IV ACCESS AT RIGHT FOREARM G22 WITH NS +KCL 20MEQ AT 75ML/HR INFUSING WELL.
--- NOTE | 2021-11-09 10:06 | NUR ---
PT ARRIVED IN ICU AT 1006 FROM 3W FOR LOW BLOOD PRESSURE. PT'S BLOOD PRESSURE IS STABLE AT THIS TIME WILL CONTINUE TO MONITOR.
[2021-11-09] MEDS ORDERED: Potassium Chloride 20 MEQ in IV NS 0.9% 1,000 ML IV SCH (11:00)
[2021-11-09] MEDS: Sodium Bicarbonate 100 MEQ in IV D5 / 0.2% NACL 1,000 ML IV SCH (12:28)
[2021-11-09 14:06] LABS: ABG OXYGEN SATURATION 90.5 % (92.0-98.5); ABG PO2 67.5 mmHg (75.0-100.0); AaDO2 103.8 mmHg; COHb 2.6 % (0.5-1.5); MetHb 0.3 % (0.0-1.5); O2Hb 87.9 % (94.0-97.0); SITE, ABG Left Radial; VENT MODE, BG 2L NC
--- NOTE | 2021-11-09 16:30 | NUR ---
PARENT PARTNER. RECEIVED THE PT AROUND 1630. PT AWAKE, RESTLESS. OXYGEN 3L VIA NASAL CANNULA. SAT 94%. PT IS TACHYPNEIC. WHEEZING, ABG DONE. RESULT NOTIFIED MD SIMEON. NO NEW ORDER RECEIVED, IV RT HAND 22G. BICARB DRIP RUNNING. HOB ELEAVTED. PT IS RESTLESS. FC PATENT. BODY IS YELLOW COLOR, WILL MONITOR VITALS
[2021-11-09 18:01] LABS: ABG BASE EXCESS -13.3 mmol/L; ABG OXYGEN SATURATION 91.9 % (92.0-98.5); ABG PCO2 27.9 mmHg (35.0-45.0); ABG PH 7.267 (7.350-7.450); ABG PO2 72.2 mmHg (75.0-100.0); AaDO2 94.5 mmHg; COHb 2.6 % (0.5-1.5); MetHb 0.3 % (0.0-1.5); O2Hb 89.2 % (94.0-97.0); SITE, ABG Left Radial; VENT MODE, BG NASAL CANNULA
--- NOTE | 2021-11-09 18:35 | NUR ---
MANAGER EMERGENCY DEPARTMENT. [facility] CALLED. PT UPDATE GIVEN.
[2021-11-09] MEDS: CEFTRIAXONE 1 G in IV D5W 50 ML IV SCH (21:18)
[2021-11-09] MEDS ORDERED: ALBUTEROL FS 2.5 MG/3 ML VIAL.NEB NEB PRN (23:30)
[2021-11-10] VITALS (69 sets, daily range): BP systolic 68–127; BP diastolic 29–81
[2021-11-10 01:27] LABS: ABG BASE EXCESS -13.4 mmol/L; ABG PH 7.274 (7.350-7.450); ABG PO2 67.6 mmHg (75.0-100.0); AaDO2 100.2 mmHg; COHb 3.1 % (0.5-1.5); MetHb 0.4 % (0.0-1.5); O2Hb 87.8 % (94.0-97.0); SITE, ABG Left Radial; VENT MODE, BG 2L NASAL CANNULA
[2021-11-10] MEDS ORDERED: SODIUM BICARBONATE SYR 50 MEQ/50 ML DISP.SYRIN ONE (02:43)
--- NOTE | 2021-11-10 02:45 | NUR ---
RT NOTE CODE BLUE CALLED INITIATED. PATIENT ORALLY INTUBATED VIA ETT 7.0 21CM @ LIP LINE. BILATERAL BREATH SOUNDS, EQUAL CHEST RISE AND COLOR CHANGE ON CO2 DETECTOR NOTED. ROSC ACHIEVED. PATIENT PLACED ON MECHANICAL VENT ON SETTINGS OF AC24 VT450 100% FIO2. MECHANICAL VENT PLUGGED INTO RED OUTLET. ALARMS ARE SET AND AUDIBLE. PATIENT SUCTIONED FOR SMALL, THIN, YELLOW, BROWN SECRETIONS, EMERGENCY EQUIPMENT AT PATIENT BEDSIDE. WAITING FOR FURTHER ORDERS. WILL CONTINUE TO MONITOR PATIENT.
[2021-11-10] MEDS: PROPOFOL 100 ML IV PRN ×4 (03:24→20:52)
[2021-11-10] MEDS: NOREPINEPHRINE 8 MG in IV NS 0.9% 242 ML IV PRN ×2 (03:26→07:37)
[2021-11-10] MEDS: Sodium Bicarbonate 100 MEQ in IV D5 / 0.2% NACL 1,000 ML IV SCH (03:38)
--- NOTE | 2021-11-10 04:40 | NUR ---
curriculum designer. sudden pt heart rate went chirs to asystole. activbated code blue. er md came and intubated, see code blue sheet. ett 7.5 ac 24,fio2 100%,tv 450,peep 5. hob elevated, fc patent.iv rt upper arm picc line. bicarb drip 75ml/h, levo and propofol started. will continue to monitor vitals.
--- NOTE | 2021-11-10 04:44 | NUR ---
arboriculture teacher. mary gift consultant dnp called up date given. new order received.
[2021-11-10] MEDS ORDERED: VANCOMYCIN 1 GM VIAL ONE (04:45)
[2021-11-10] MEDS ORDERED: METRONIDAZOLE 500MG/ NS 100ML 100 ML IV ONE (04:45)
[2021-11-10 04:47] LABS: ABG BASE EXCESS -11.3 mmol/L; ABG OXYGEN SATURATION 99.6 % (92.0-98.5); ABG PCO2 31.5 mmHg (35.0-45.0); ABG PH 7.278 (7.350-7.450); ABG PO2 150.7 mmHg (75.0-100.0); AaDO2 530.8 mmHg; COHb 2.2 % (0.5-1.5); MetHb 0.3 % (0.0-1.5); O2Hb 97.1 % (94.0-97.0); PEEP,BG 5 cm H2O; SITE, ABG Right Brachial; VENT MODE, BG AC 24 450 100% +5; VT, ABG 450 mL
[2021-11-10] MEDS: METRONIDAZOLE 500MG/ NS 100ML 500 MG in PREMIX 1 EA IV SCH ×3 (04:50→20:44)
[2021-11-10] MEDS ORDERED: ZOSYN IVPB 4.5 G in IV D5W 50ml IV ONE (05:00)
[2021-11-10] MEDS ORDERED: Sodium Bicarbonate 150 MEQ in IV D5W 1,000 ML IV SCH ×4 (05:00→22:00)
[2021-11-10] MEDS ORDERED: MEROPENEM 1 G in IV NS 0.9% 100 ML IV ONE (05:00)
[2021-11-10] MEDS ORDERED: MEROPENEM 1 G in IV NS 0.9% 100 ML IV SCH ×2 (05:00→20:00)
[2021-11-10] MEDS ORDERED: IV LR 1000 ML 1,000 ML IV PRN (05:00)
[2021-11-10] MEDS ORDERED: VANCOMYCIN HCL 1.25 GM in IV D5W 260 ML IV ONE (05:00)
[2021-11-10] MEDS ORDERED: PIPERACILLIN /TAZOBACTAM 2.25 G in IV D5W 50 ML IV SCH (06:00)
--- NOTE | 2021-11-10 06:46 | NUR ---
arboriculturist. am care given. remaining same vent ettings tolerated well. sat 98%. no acute distress noted. monitor car operator showing nsr. iv rt upper arm picc line. ivf lr 75ml/h, bicardb drip 75ml/h, propofol 20 mcg/kg/min, levophed 0.5mcg/kg/min, fc patent. hob eleavted/ carole soft wrist restraint checked and released. no injury or redness noted. turn and reposition q2h. will continue to monitor vitals.
[2021-11-10 07:38] LABS: CALCIUM, SERUM 6.8 mg/dL (8.5-10.1); CREATININE 1.1 mg/dL (0.6-1.3)
[2021-11-10] MEDS: MEROPENEM 1 G in IV NS 0.9% 100 ML IV SCH ×2 (07:38→20:44)
[2021-11-10] MEDS: ENSURE ENLIVE 237 ML LIQUID (VANILLA) PO SCH (07:40)
[2021-11-10] MEDS: PROSOURCE / PROSTAT (PYXIS) 30 ML UDC PO SCH ×3 (07:40→17:04)
[2021-11-10] MEDS ORDERED: EPINEPHRINE (1:10,000) SYRINGE 1 MG/10 ML DISP.SYRIN IVP ONE (07:50)
[2021-11-10] MEDS ORDERED: SODIUM BICARBONATE SYR 50 MEQ/50 ML DISP.SYRIN IV ONE (07:50)
[2021-11-10 08:11] LABS: ABG BASE EXCESS -8.8 mmol/L; ABG OXYGEN SATURATION 99.3 % (92.0-98.5); ABG PCO2 26.2 mmHg (35.0-45.0); ABG PH 7.385 (7.350-7.450); ABG PO2 135.1 mmHg (75.0-100.0); AaDO2 551.7 mmHg; COHb 1.9 % (0.5-1.5); MetHb 0.2 % (0.0-1.5); O2Hb 97.2 % (94.0-97.0); PEEP,BG 5 cm H2O; SITE, ABG Right Brachial; VT, ABG 450 mL
--- NOTE | 2021-11-10 08:36 | NUR ---
fio2 decreased from 100% to 60% due to 98 - 100% spo2 and 135 pao2 Addendum: 11/10/21 at 0837 by CHELSEA THACKER RT Amended: Links added.
--- NOTE | 2021-11-10 08:46 | NUR ---
dimas garrett Addendum: 11/10/21 at 0846 by CHELSEA THACKER RT Amended: Links added.
[2021-11-10] MEDS ORDERED: PANTOPRAZOLE 40 MG VIAL IV SCH (09:30)
[2021-11-10] MEDS: POTASSIUM CL. PREMIX PERIPHER. 50 ML IV SCH ×3 (10:37→13:47)
[2021-11-10] MEDS: LACTULOSE 10 G/15 ML UDC (PYXIS) PO SCH ×3 (10:41→21:05)
[2021-11-10 10:49] LABS: BASOPHILS % (AUTO) 0.2 % (0.0-2.0); EOSINOPHILS % (AUTO) 0.3 % (0.0-6.0); LYMPHOCYTES # (AUTO) 0.7 K/uL (0.8-4.8); LYMPHOCYTES % (AUTO) 3.1 % (20.0-44.0); MEAN CORPUSCULAR HGB CONC 33 g/dl (31.0-36.0); MEAN CORPUSCULAR VOLUME 118 fL (82-100); MONOCYTES # (AUTO) 0.9 K/uL (0.1-1.30); MONOCYTES % (AUTO) 4.1 % (2.0-12.0); NEUTROPHILS # (AUTO) 21.4 K/uL (1.8-8.9); NEUTROPHILS % (AUTO) 92.3 % (43.0-81.0); PLATELET COUNT (AUTO) 125 K/uL (150-450); WHITE BLOOD COUNT (AUTO) 23.1 K/uL (4.3-11.0)
[2021-11-10 10:58] LABS: HEMATOCRIT 20 % (33-45); HEMOGLOBIN 6.6 g/dL (11.5-14.8)
[2021-11-10] MEDS ORDERED: NOREPINEPHRINE 32 MG in IV NS 0.9% 218 ML IV PRN (11:00)
[2021-11-10] MEDS ORDERED: JEVITY 1.2 CAL 1,000 ML BOTTLE GT PRN ×2 (12:30→12:44)
[2021-11-10] MEDS: ALBUMIN 25% 12.5 GM in PREMIX 1 EA IV SCH ×4 (16:47→17:34)
[2021-11-10] MEDS ORDERED: VANCOMYCIN 0.75 GM in IV D5W 250 ML IV SCH (17:00)
[2021-11-10 17:25] LABS: BAND % (MANUAL) 6 % (0.0-5.0); LYMPHOCYTES % (MANUAL) 6 % (16-48); MONOCYTES % (MANUAL) 1 % (0-11.0); NEUTROPHILS % (MANUAL) 87 (42-76)
--- NOTE | 2021-11-10 19:55 | NUR ---
INDUSTRIAL CLEANING TECHNICIAN. INITIAL ASSESSMENT. RECEIVED THE PT REST IN BED. ORALLY INTUBATED. SEDATED WITH PROPOFOL 40MCG/KG/MIN, ETT 7.5, LIP 22CMS, AC 26CM,TV 450,FIO2 60%, SAT 98%, NO ACUTE DISTRESS NOTED, WOOD FENCE ERECTOR SHOWING NSR, OGT INTACT. JEVITY RUNNING. IV RT UPPER ARM PICC LINE. PROPOFOL 40MCG/KG/MIN, IVF D5W IN 150 MEQ BICARB DRIP 100ML/H. HOB ELEVATED. FC PATENT. LAURITA SOFT WRIST RESTRAINT CHECKED AND RELEASED. NO INJURY OR REDNESS NOTED. WILL CONTINUE TO MONITOR VITALS.
[2021-11-10] MEDS: NOREPINEPHRINE 32 MG in IV NS 0.9% 218 ML IV PRN (20:35)
[2021-11-10] MEDS ORDERED: PIPERACILLIN /TAZOBACTAM 3.375 G in IV D5W 100 ML IV SCH (21:00)
[2021-11-11] VITALS (87 sets, daily range): BP systolic 77–119; BP diastolic 35–74
--- NOTE | 2021-11-11 03:25 | NUR ---
OCCUPATIONAL THERAPY TECHNICIAN. AM CARE GIVEN. REMAINING SAME VENT SETTINGS ON. SAT 93%. ASSISTANT PROFESSOR OF ART SHOWING NSR, IV RT UPPER ARM PICC LINE OGT INTACT TUBE FEEDING NOT TOLERATED WELL. HOB ELEVATED. ABDOMEN DISTENDED. FC PATENT.LAURITA SOFT WRIST RESTRAINT CHECKED AND RELEASED. NO INJURY OR REDNESS NOTED.PT IS UNSTABLE, LEVOPHED 0.6MCG/KG/MIN, BICARB DRIP 100ML/H PROPOFOL 40MCG/KG/MIN. WILL CONTINUE TO MONITOR VITALS
[2021-11-11] MEDS: PROPOFOL 100 ML IV PRN ×3 (04:04→18:58)
[2021-11-11] MEDS: LACTULOSE 10 G/15 ML UDC (PYXIS) PO SCH ×4 (04:07→21:01)
[2021-11-11 04:58] LABS: BASOPHILS % (AUTO) 0.1 % (0.0-2.0); EOSINOPHILS % (AUTO) 1.4 % (0.0-6.0); LYMPHOCYTES # (AUTO) 0.6 K/uL (0.8-4.8); LYMPHOCYTES % (AUTO) 2.9 % (20.0-44.0); MEAN CORPUSCULAR HGB CONC 33 g/dl (31.0-36.0); MEAN CORPUSCULAR VOLUME 118 fL (82-100); MONOCYTES # (AUTO) 0.8 K/uL (0.1-1.30); MONOCYTES % (AUTO) 3.8 % (2.0-12.0); NEUTROPHILS % (AUTO) 91.8 % (43.0-81.0); PLATELET COUNT (AUTO) 101 K/uL (150-450); WHITE BLOOD COUNT (AUTO) 21.8 K/uL (4.3-11.0)
--- NOTE | 2021-11-11 05:00 | NUR ---
RT FIO2 increased from 60% to 70% due to SpO2 90%
[2021-11-11 05:07] LABS: RED BLOOD CELL COUNT(AUTO) 1.56 MIL/uL (4.0-5.2)
[2021-11-11 05:10] LABS: HEMATOCRIT 18 % (33-45)
[2021-11-11 05:13] LABS: CALCIUM, SERUM 7.3 mg/dL (8.5-10.1); CREATININE 1.6 mg/dL (0.6-1.3); MAGNESIUM 1.3 mg/dL (1.8-2.4); PHOSPHORUS 2.9 mg/dL (2.5-4.9); POTASSIUM 2.9 mmol/L (3.5-5.1)
[2021-11-11] MEDS: METRONIDAZOLE 500MG/ NS 100ML 500 MG in PREMIX 1 EA IV SCH (05:24)
[2021-11-11 05:43] LABS: BAND % (MANUAL) 2 % (0.0-5.0); EOSINOPHILS % (MANUAL) 2 % (0-4); LYMPHOCYTES % (MANUAL) 5 % (16-48); MONOCYTES % (MANUAL) 4 % (0-11.0)
[2021-11-11 05:44] LABS: NEUTROPHILS % (MANUAL) 87 (42-76)
--- NOTE | 2021-11-11 06:40 | NUR ---
QUALITY IMPROVEMENT CONSULTANT. PT WAS DESATURATED. OXYGEN 70%. INCREASED.CRITICAL VALUE NOTIFIED GUERA
[2021-11-11] MEDS: POTASSIUM CL. PREMIX PERIPHER. 50 ML IV SCH ×4 (06:59→10:17)
--- NOTE | 2021-11-11 07:30 | NUR ---
RN NOTES PT FOUND SEMI FOWLERS, FLACC = 0 AND BILATERAL RISE AND FALL OF THE CHEST OBSERVED. PT MECHANICAL VENTILATION TUBES REQUIRE FREQUENT SUCTIONING BECAUSE OF SECRETIONS THAT CONDENSATE. OG TUBE IN PLACE, FEEDING ON HOLD BECAUSE OF HIGH RESIDUAL. R UA PICC IS PATIENT AND INTACT. PALACIOS CATH RESERVOIR BELOW PATIENT DRAINING BY GRAVITY. BILATERAL SOFT WRISTS APPLIED, PULSES PALPATED AND CAP REFILL < 3 SECONDS BILATERALLY. RN WILL CONTINUE CARE PLAN AND ANTICIPATE NEEDS. SAFETY MEASURES IN PLACE, BED LOCKED AND IN LOWEST POSITION, SIDE RAILS UPX2, CALL LIGHT WITHIN REACH, BED ALARM ARMED.
[2021-11-11] MEDS: ENSURE ENLIVE 237 ML LIQUID (VANILLA) PO SCH (08:00)
[2021-11-11] MEDS: PROSOURCE / PROSTAT (PYXIS) 30 ML UDC PO SCH ×3 (08:41→17:00)
[2021-11-11] MEDS: PANTOPRAZOLE 40 MG/PACK PACK GT SCH (08:41)
[2021-11-11] MEDS: MEROPENEM 1 G in IV NS 0.9% 100 ML IV SCH ×2 (08:41→21:00)
--- NOTE | 2021-11-11 09:00 | NUR ---
MD COMMUNICATION DR SIMEON ORDERED LOW INTERMITTENT SUCTIONING OF GASTRIC CONTENT STATING THAT FLUID FOUND IN MECH VENT TUBE IS LIKELY BILE. RN WILL START LOW INTERMITTENT SUCTIONING.
[2021-11-11 09:21] LABS: ABG BASE EXCESS -6.8 mmol/L; ABG OXYGEN SATURATION 87.9 % (92.0-98.5); ABG PCO2 36.2 mmHg (35.0-45.0); ABG PH 7.327 (7.350-7.450); ABG PO2 63.6 mmHg (75.0-100.0); AaDO2 396.6 mmHg; COHb 0.6 % (0.5-1.5); MetHb 0.2 % (0.0-1.5); O2Hb 87.2 % (94.0-97.0); PEEP,BG 0 cm H2O; SITE, ABG Right Brachial; VT, ABG 450 mL
[2021-11-11 10:10] LABS: HEMOGLOBIN 6.4 g/dL (11.5-14.8)
[2021-11-11 10:12] LABS: ALBUMIN 2.4 g/dL (3.4-5.0); BILIRUBIN,TOTAL 19.6 mg/dL (0.2-1.0); CALCIUM, SERUM 7.1 mg/dL (8.5-10.1); CREATININE 1.6 mg/dL (0.6-1.3); POTASSIUM 3.1 mmol/L (3.5-5.1); TOTAL PROTEIN, SERUM 4.6 g/dL (6.4-8.2)
[2021-11-11] MEDS: NOREPINEPHRINE 32 MG in IV NS 0.9% 218 ML IV PRN ×2 (11:00→21:00)
[2021-11-11] MEDS: Magnesium 1GM/D5W 100ML PREMIX 100 ML IV SCH ×2 (11:00→12:12)
[2021-11-11] MEDS: Potassium Chloride 20 MEQ in IV D5/ 0.9% NACL 1,000 ML IV SCH ×2 (11:14→21:00)
[2021-11-11 11:25] LABS: D-DIMER 11.18 mg/L(FEU (0.17-0.50)
--- NOTE | 2021-11-11 12:04 | NUR ---
MAHAMED Note: Due to pt being intubated she is unable to answer any questions. MAHAMED attempted to locate any contact information but was unable too. MAHAMED attempted to contact pt's [employer]stan and spoke with patient intake representative Afua who was unable to locate any contact or family information. Addendum: 11/11/21 at 1205 by MAHAMED YANEZ ([phone], medical contact number).
[2021-11-11 17:20] LABS: HEMOGLOBIN 9.6 g/dL (11.5-14.8)
--- NOTE | 2021-11-11 19:13 | NUR ---
RN NOTES PT FOUND SEMI FOWLERS, FLACC = 0 AND BILATERAL RISE AND FALL OF THE CHEST OBSERVED. MECHANICAL VENTILATION TUBES FREQUENT SUCTIONING PERSISTED THROUGHOUT SHIFT. OG TUBE IN PLACE, CURRENTLY ON LOW INTERMITTENT SUCTIONING. R UA PICC IS PATIENT AND INTACT. PALACIOS CATH RESERVOIR BELOW PATIENT DRAINING BY GRAVITY. SBAR AND REPORT GIVEN TO SANITATION TRUCK CLEANER RN, ALL QUESTIONS ANSWERED. SAFETY MEASURES IN PLACE, BED LOCKED AND IN LOWEST POSITION, SIDE RAILS UPX2, CALL LIGHT WITHIN REACH, BED ALARM ARMED. PT ENDORSED FOR ARTHUR.
--- NOTE | 2021-11-11 19:20 | NUR ---
RN NOTE RECEIVED PATIENT IN BED, SEDATED. UNAROUSABLE TO NAME OR PAIN. EVEN CHEST RISE. PATIENT IS INTUBATED. ETT 7.0/21 CM AT THE LIP. OXYGEN SATURATION OF 91 PERCENT WITH GOOD WAVEFORM VIA BEDSIDE MONITOR. ON TELE MONITORING. SKIN IS JAUNDICE. COOL AND DRY. ABDOMEN APPEARS DISTENDED. SOFT. OGT PRESENT 59 CM ON LOW INT SUCTION. DRAINAGE APPEARS TO BE BILE. BILE COLORED FLUID ALSO IN ETT. RIGHT UPPER ARM PICC LINE INFUSING LEVO AT 0.6 MCG, DIPRIVAN AT 40 MCG, 20 MEQ K+ IN D5/NS AT 100 CC/HR. INDWELLING PALACIOS CATHER DRAINING CLOUDY YELLOW URINE. ASSISTED WITH TURNING AND REPOSITIONING, BED LOW, IN LOCKED POSITION. WILL CONTINUE TO MONITOR. Addendum: 11/11/21 at 2007 by CHOCO ORTIZ RN RT INCREASED FIO2 FROM 70% TO 90%. PATIENT OXYGEN SATURATION OF 91%. BEGINNING OF SHIFT VENT SETTINGS AC:26, FIO2 70%, VT 450, NO PEEP. HOB ELEVATED 35 DEGREES.
--- NOTE | 2021-11-11 20:50 | NUR ---
RN NOTE RECEIVED PHONE CALL FROM PERSON NAMED RUKHSANA LOJA. PER RUKHSANA, SHE RECEIVED A VOICEMAIL FROM FROM VEGETABLE WORKER. STATES SHE IS HALF SISTER OF PATIENT. STATES SHE WILL ATTEMPT TO CONTACT PATIENTS MOTHER, "FANNIE AZMAN", WHO IS RESIDING IN [place] AT THIS TIME. STATES SHE WILL CALL BACK.
--- NOTE | 2021-11-11 22:24 | NUR ---
FOR SOCIAL SERVICE/CASE MANAGEMENT Please read prior nursing note. Per Princess (Half sister), she was able to get in contact with patients mother, Aleksandra Alaniz, Per princess, patients mother is now aware of patients current situation. Stated that the mother will attempt to call in the morning and inquire with social service/case management for her to visit hospital. Nurse is in contact with Princess Toledo ([phone]). Please call her for any questions.
[2021-11-12] VITALS (103 sets, daily range): BP systolic 56–114; BP diastolic 31–77
[2021-11-12 01:39] LABS: HEMOGLOBIN 10.3 g/dL (11.5-14.8)
[2021-11-12] MEDS: PROPOFOL 100 ML IV PRN ×3 (04:00→19:12)
[2021-11-12 04:44] LABS: BASOPHILS # (AUTO) 0.1 K/uL (0.0-0.2); BASOPHILS % (AUTO) 0.3 % (0.0-2.0); EOSINOPHILS % (AUTO) 0.4 % (0.0-6.0); HEMATOCRIT 30 % (33-45); HEMOGLOBIN 10.2 g/dL (11.5-14.8); LYMPHOCYTES # (AUTO) 0.6 K/uL (0.8-4.8); LYMPHOCYTES % (AUTO) 1.6 % (20.0-44.0); MEAN CORPUSCULAR HGB CONC 33 g/dl (31.0-36.0); MEAN CORPUSCULAR VOLUME 103 fL (82-100); MONOCYTES # (AUTO) 0.7 K/uL (0.1-1.30); MONOCYTES % (AUTO) 2.1 % (2.0-12.0); NEUTROPHILS # (AUTO) 33.6 K/uL (1.8-8.9); NEUTROPHILS % (AUTO) 95.6 % (43.0-81.0); PLATELET COUNT (AUTO) 71 K/uL (150-450); RED BLOOD CELL COUNT(AUTO) 2.96 MIL/uL (4.0-5.2)
[2021-11-12 04:48] LABS: WHITE BLOOD COUNT (AUTO) 35.1 K/uL (4.3-11.0)
[2021-11-12] MEDS: LACTULOSE 10 G/15 ML UDC (PYXIS) PO SCH ×4 (04:51→23:09)
[2021-11-12 04:52] LABS: ALBUMIN 2.1 g/dL (3.4-5.0); BILIRUBIN,TOTAL 23.9 mg/dL (0.2-1.0); CALCIUM, SERUM 7.1 mg/dL (8.5-10.1); CREATININE 1.7 mg/dL (0.6-1.3); MAGNESIUM 1.7 mg/dL (1.8-2.4); TOTAL PROTEIN, SERUM 4.4 g/dL (6.4-8.2)
[2021-11-12 05:03] LABS: BAND % (MANUAL) 1 % (0.0-5.0); LYMPHOCYTES % (MANUAL) 4 % (16-48); MONOCYTES % (MANUAL) 2 % (0-11.0); NEUTROPHILS % (MANUAL) 93 (42-76)
[2021-11-12 05:21] LABS: POTASSIUM 3.7 mmol/L (3.5-5.1)
[2021-11-12] MEDS: Potassium Chloride 20 MEQ in IV D5/ 0.9% NACL 1,000 ML IV SCH (06:44)
--- NOTE | 2021-11-12 07:30 | NUR ---
RN NOTES PT FOUND SEMI FOWLERS DISPLAYING NO S/S ACUTE DISTRESS, FLACC = 0 AND BILATERAL RISE AND FALL OF THE CHEST OBSERVED. JAUNDICE PERSISTS. FLUID COLLECTING IN MECH VENT TUBES PERSISTS. LOW INTERMITTENT SUCTIONING OF OG TUBE ONGOING. PALACIOS CATH RESERVOIR BELOW PATIENT DRAINING BY GRAVITY. R UA PICC IS PATIENT AND INTACT. RN WILL CONTINUE CARE PLAN AND ANTICIPATE NEEDS. SAFETY MEASURES IN PLACE, BED LOCKED AND IN LOWEST POSITION, SIDE RAILS UPX2, CALL LIGHT WITHIN REACH, BED ALARM ARMED.
[2021-11-12] MEDS: NOREPINEPHRINE 32 MG in IV NS 0.9% 218 ML IV PRN ×2 (07:56→18:34)
[2021-11-12] MEDS: ENSURE ENLIVE 237 ML LIQUID (VANILLA) PO SCH (08:00)
[2021-11-12 09:18] LABS: ABG BASE EXCESS -11.8 mmol/L; ABG OXYGEN SATURATION 89.5 % (92.0-98.5); ABG PH 7.192 (7.350-7.450); ABG PO2 59.9 mmHg (75.0-100.0); AaDO2 611.1 mmHg; COHb 0.6 % (0.5-1.5); MetHb 0.2 % (0.0-1.5); O2Hb 88.8 % (94.0-97.0); PEEP,BG 0 cm H2O; SITE, ABG Left Radial; VT, ABG 450 mL
[2021-11-12] MEDS: PANTOPRAZOLE 40 MG/PACK PACK GT SCH (09:19)
[2021-11-12] MEDS: PROSOURCE / PROSTAT (PYXIS) 30 ML UDC PO SCH ×3 (09:20→16:42)
[2021-11-12] MEDS: MEROPENEM 1 G in IV NS 0.9% 100 ML IV SCH ×2 (09:20→20:00)
[2021-11-12] MEDS ORDERED: CELLULOSE,OXIDIZED 1 EA PACK MC STA (09:37)
--- NOTE | 2021-11-12 09:59 | NUR ---
WOUND CARE CONSULT: PT SEEN FOR BLEEDING OF BUTTOCKS. CALLED DR FELIX FLORES SURGICAL TEAM AND RECEIVED ORDERS FROM [facility] SURGICEL APPLIED TO BUTTOCKS, COVERED WITH OIL EMULSION, THEN ABD PADS AND PRESSURE DRESSING USING SURGINET. PT TOLERATED WELL. DISCUSSED WITH SURGICAL TEAM. RECTAL TUBE NOW IN PLACE WELL PALACIOS CATH. PT IS ON FIRST STEP KEVIN JACOBO. IN AGREEMENT WITH PLAN OF CARE.
[2021-11-12] MEDS ORDERED: Magnesium 1GM/D5W 100ML PREMIX 100 ML IV SCH (10:00)
[2021-11-12] MEDS ORDERED: SILVER NITRATE APPLICATOR 1 EA BOX TP ONE (10:00)
[2021-11-12] MEDS: Sodium Bicarbonate 100 MEQ in IV D5 / 0.2% NACL 1,000 ML IV PRN (12:19)
[2021-11-12] MEDS: DOXYCYCLINE 100 MG in IV D5W 100 ML IV SCH ×2 (12:19→22:14)
[2021-11-12] MEDS ORDERED: PHYTONADIONE INJ 10 MG/1 ML AMPUL SQ ONE (16:30)
[2021-11-12 16:37] LABS: D-DIMER 11.66 mg/L(FEU (0.17-0.50)
[2021-11-12 17:33] LABS: FERRITIN 508 ng/mL (8-388)
[2021-11-12 17:34] LABS: C-REACTIVE PROTEIN 16.3 mg/dL (0.0-0.9)
[2021-11-12 17:38] LABS: IRON, SERUM 43 ug/dl (50-175)
[2021-11-12 17:44] LABS: TOTAL IRON BINDING CAPACITY < 36 ug/dl (250-450)
--- NOTE | 2021-11-12 18:13 | NUR ---
RT PATIENT REMAINS IN CRITICAL CONDITION. ORALLY INTUBATED ON [facility] VENT WITH ORDERED SETTINGS. AIRWAY PATENT AND SX'D Q2. AMBU BAG AT HOB Addendum: 11/12/21 at 1815 by RYAN BEAN RT Amended: Links added.
--- NOTE | 2021-11-12 19:10 | NUR ---
RN NOTES PT FOUND SEMI FOWLERS DISPLAYING NO S/S ACUTE DISTRESS, FLACC = 0 AND BILATERAL RISE AND FALL OF THE CHEST OBSERVED. JAUNDICE PERSISTS. FLUID COLLECTING IN [facility] V[facility] TUBES IMPROVED. FLEXISEAL RESERVOIR BELOW PATIENT DRAINING BY GRAVITY. PALACIOS CATH RESERVOIR BELOW PATIENT DRAINING BY GRAVITY. R UA PICC IS PATIENT AND INTACT. FFP INFUSION ONGOING, ENDORSED TO SCIENCE TECHNICIAN FOR COMPLETION. SBAR AND REPORT GIVEN TO SCIENCE TECHNICIAN RN, ALL QUESTIONS ANSWERED. SAFETY MEASURES IN PLACE, BED LOCKED AND IN LOWEST POSITION, SIDE RAILS UPX2, CALL LIGHT WITHIN REACH, BED ALARM ARMED. PT ENDORSED FOR ARTHUR.
--- NOTE | 2021-11-12 19:39 | NUR ---
RCVD PT ORALLY INTUBATED WITH ETT 7.0 SECURED @ 21 CM LIP LINE ON VENT WITH THE SETTINGS OF AC 26,VT 500,FIO2 100% PEEP OF 5. NO RESPIRATORY DISTRESS NOTED AT THIS TIME. VENT PLUGGED INTO RED OUTLET. VENT ALARMS ON AND AUDIBLE. WILL CONTINUE TO MONITOR T/O SHIFT.
--- NOTE | 2021-11-12 19:41 | NUR ---
RN NOTE RECEIVED PATIENT IN BED, SEDATED. UNAROUSABLE AT THIS TIME. PATIENT IS INTUBATED. ETT 7.0/21 CM AT THE LIP. OXYGEN SATURATION OF 97 PERCENT WITH GOOD WAVEFORM VIA BEDSIDE MONITOR. RECEIVED FROM AM SHIFT WITH VENT SETTINGS AC 26, TV 500, FIO2 100 AND PEEP OF 5. ON TELE MONITORING. SKIN IS COOL AND DRY TO TOUCH. JAUNDICE APPEARING. ABDOMEN APPEARS DISTENDED. OGT PRESENT 59 CM. NO LONGER ON LOW INT SUCTION. HOB ELEVATED 35 DEGREES. STILL WITH SOME GREEN DRAINAGE IN ETT TUBE. RIGHT UPPER ARM PICC LINE INFUSING LEVO AT 0.8 MCG, DIPRIVAN AT 30 MCG, NA BICARB AT 75 CC/HR. INDWELLING PALACIOS CATHER DRAINING CLOUDY YELLOW URINE. FLEXISEAL IN PLACE, DRAINING BROWN LIQUID. ASSISTED WITH TURNING AND REPOSITIONING, BED LOW, IN LOCKED POSITION. WILL CONTINUE TO MONITOR.
--- NOTE | 2021-11-12 20:48 | NUR ---
RN NOTE NOTED PATIENT WITH CORE TEMPERATURE OF 94.5. VIA NASOPHARYNGEAL. LEROY HUGGER ORDER OBTAINED. WILL CONTINUE TO MONITOR.
--- NOTE | 2021-11-12 22:00 | NUR ---
RN NOTE SPOKE WITH PATIENT SISTER, DARNELL LOJA USING WAITER/WAITRESS TAKE OUT LINUX SYSTEM ADMIN. OPERATURE NUMBER [id number], Marlon Romero.
[2021-11-13] VITALS (100 sets, daily range): BP systolic 67–116; BP diastolic 30–56
[2021-11-13] MEDS: Sodium Bicarbonate 100 MEQ in IV D5 / 0.2% NACL 1,000 ML IV PRN ×2 (01:27→16:35)
[2021-11-13] MEDS: PROPOFOL 100 ML IV PRN ×4 (03:26→22:01)
[2021-11-13] MEDS: NOREPINEPHRINE 32 MG in IV NS 0.9% 218 ML IV PRN ×3 (03:28→20:26)
[2021-11-13 04:21] LABS: BASOPHILS % (AUTO) 0.1 % (0.0-2.0); EOSINOPHILS % (AUTO) 1.1 % (0.0-6.0); HEMATOCRIT 26 % (33-45); HEMOGLOBIN 8.6 g/dL (11.5-14.8); LYMPHOCYTES # (AUTO) 0.5 K/uL (0.8-4.8); LYMPHOCYTES % (AUTO) 1.9 % (20.0-44.0); MEAN CORPUSCULAR HGB CONC 34 g/dl (31.0-36.0); MEAN CORPUSCULAR VOLUME 103 fL (82-100); MONOCYTES # (AUTO) 0.5 K/uL (0.1-1.30); MONOCYTES % (AUTO) 2.2 % (2.0-12.0); NEUTROPHILS # (AUTO) 23.3 K/uL (1.8-8.9); NEUTROPHILS % (AUTO) 94.7 % (43.0-81.0); RED BLOOD CELL COUNT(AUTO) 2.48 MIL/uL (4.0-5.2); WHITE BLOOD COUNT (AUTO) 24.6 K/uL (4.3-11.0)
[2021-11-13 04:32] LABS: CALCIUM, SERUM 7.4 mg/dL (8.5-10.1); CREATININE 1.8 mg/dL (0.6-1.3); PLATELET COUNT (AUTO) 36 K/uL (150-450); POTASSIUM 3.5 mmol/L (3.5-5.1)
[2021-11-13 04:38] LABS: ALBUMIN 1.9 g/dL (3.4-5.0); BILIRUBIN,TOTAL 21.5 mg/dL (0.2-1.0); MAGNESIUM 1.7 mg/dL (1.8-2.4); TOTAL PROTEIN, SERUM 4.3 g/dL (6.4-8.2)
[2021-11-13 04:56] LABS: D-DIMER 14.04 mg/L(FEU (0.17-0.50)
[2021-11-13] MEDS: LACTULOSE 10 G/15 ML UDC (PYXIS) PO SCH ×4 (05:01→21:32)
[2021-11-13 05:23] LABS: BAND % (MANUAL) 2 % (0.0-5.0); BASOPHILS % (MANUAL) 0 % (0.0-2.0); EOSINOPHILS % (MANUAL) 1 % (0-4); LYMPHOCYTES % (MANUAL) 2 % (16-48); MONOCYTES % (MANUAL) 2 % (0-11.0); NEUTROPHILS % (MANUAL) 93 (42-76)
--- NOTE | 2021-11-13 07:38 | NUR ---
RN OPENING NOTES RECEIVED PT IN BED, PT IS SEDATED. TELE MONITOR SR-ST. PT ON ORDERED VENT SETTINGS. IV ACCESS NOTED AT [facility] PICC AND RFA 20G WITH NA BICARB, DIPRIVAN, AND LEVO RUNNING. WILL CONT. TO MONITOR PT THROUGHOUT SHIFT.
[2021-11-13] MEDS: ENSURE ENLIVE 237 ML LIQUID (VANILLA) PO SCH (07:54)
[2021-11-13] MEDS: DOXYCYCLINE 100 MG in IV D5W 100 ML IV SCH ×2 (08:00→20:20)
[2021-11-13] MEDS: MEROPENEM 1 G in IV NS 0.9% 100 ML IV SCH ×2 (08:00→21:32)
[2021-11-13] MEDS: PROSOURCE / PROSTAT (PYXIS) 30 ML UDC PO SCH ×3 (08:01→16:36)
[2021-11-13] MEDS: PANTOPRAZOLE 40 MG/PACK PACK GT SCH (08:01)
[2021-11-13 10:07] LABS: IMMUNOGLOBULIN A, SERUM 450 mg/dL (87-352); IMMUNOGLOBULIN G, SERUM 894 mg/dL (586-1602); IMMUNOGLOBULIN M, SERUM 155 mg/dL (26-217)
[2021-11-13] MEDS ORDERED: Magnesium 1GM/D5W 100ML PREMIX 100 ML IV SCH (10:30)
--- NOTE | 2021-11-13 10:48 | NUR ---
Re-turned on int. suction. 600ml gastric output. Holding next med due to pt not absorbing through GI.
[2021-11-13] MEDS: PHENYLEPHRINE 100 MG in IV NS 0.9% 240 ML IV PRN (19:03)
--- NOTE | 2021-11-13 19:10 | NUR ---
RN CLOSING NOTES PT IN BED SEDATED. TELE MONITOR SR-ST. PT ON ORDERED VENT SETTINGS. IV ACCESS NOTED AT [facility] PICC AND RFA 20G WITH NA BICARB @ 75ML/HR, DIPRIVAN @30, AND LEVO @1 RUNNING. ALL SAFETY MEASURES IN PLACE, WILL ENDORSE TO HEALTH INSPECTOR FOOD RN FOR ARTHUR.
--- NOTE | 2021-11-13 19:22 | NUR ---
RN NOTE Received patient in bed, sedated. Unarousable to name and deep pain. Intubated. ETT 7.0/21 cm at the lip. vent settings of AC 26, FIO2 100, TV 475, PEEP 5.0. Oxygen saturation of 90 percent via bedside monitor with good waveform. OGT in place. 59 cm at the lip. OGT on low intermittent suction. noted cannister with dark red fluids. no clumps. Skin is jaundice. Generalized edema noted. right upper arm picc line. infusing na bicarb at 75 cc/hr, levo at 1 mcg, alverto at 0.5 mcg, diprivan at 30 mcg. indwelling desouza catheter, small amount of tea colored urine. rectal tube in place, draining green fluids. patient on barbi hugger as curent temp is <96.0 via nasopharyngeal temp. Max assisted with turning and repositioning. bed low, in locked position, Will continue to monitor. Addendum: 11/13/21 at 1948 by CHOCO ORTIZ RN Please ignore RN note from 1920 user MR, wrong account.
[2021-11-13] MEDS ORDERED: VASOPRESSIN INJ 40 UNIT in IV NS 0.9% 38 ML IV PRN (23:30)
[2021-11-13] MEDS ORDERED: VASOPRESSIN INJ 20 UNIT/ML VIAL ONE (23:38)
--- NOTE | 2021-11-13 23:46 | NUR ---
RECEIVED PT INTUBATED ON [facility] VENT. PT SX'D MODERATE AMT OF THIN GREEN/YELLOW SECRETIONS. VENT ALARMS SET AND AUDIBLE. PT IN CRITICAL CONDITION. WILL CONTINUE TO MONITOR. Addendum: 11/13/21 at 2348 by ARANZA MARTINEZ RT Amended: Links added.
--- NOTE | 2021-11-13 23:51 | NUR ---
RN NOTE Patient is persistently hypotensive despite being on levo and alverto. Reached maximum doserate for levo at 1 mcg and alverto at 3 mcg. Informed MD guncotton packer. patients BP 83/41. informed md guncotton packer. MD ordered a third pressor, Vasopressin. New order noted and carried out.
[2021-11-14] VITALS (88 sets, daily range): BP systolic 34–149; BP diastolic 16–87
[2021-11-14] MEDS: NOREPINEPHRINE 32 MG in IV NS 0.9% 218 ML IV PRN ×3 (03:45→20:48)
[2021-11-14] MEDS: LACTULOSE 10 G/15 ML UDC (PYXIS) PO SCH ×4 (03:48→22:00)
[2021-11-14] MEDS: Sodium Bicarbonate 100 MEQ in IV D5 / 0.2% NACL 1,000 ML IV PRN (04:09)
[2021-11-14] MEDS: PHENYLEPHRINE 100 MG in IV NS 0.9% 240 ML IV PRN ×3 (04:34→21:02)
[2021-11-14 04:36] LABS: BASOPHILS % (AUTO) 0.1 % (0.0-2.0); EOSINOPHILS % (AUTO) 1.6 % (0.0-6.0); HEMATOCRIT 28 % (33-45); HEMOGLOBIN 9.1 g/dL (11.5-14.8); LYMPHOCYTES # (AUTO) 1.6 K/uL (0.8-4.8); LYMPHOCYTES % (AUTO) 7.2 % (20.0-44.0); MEAN CORPUSCULAR HGB CONC 32 g/dl (31.0-36.0); MEAN CORPUSCULAR VOLUME 109 fL (82-100); MONOCYTES # (AUTO) 0.2 K/uL (0.1-1.30); MONOCYTES % (AUTO) 0.9 % (2.0-12.0); NEUTROPHILS # (AUTO) 20.2 K/uL (1.8-8.9); NEUTROPHILS % (AUTO) 90.2 % (43.0-81.0); RED BLOOD CELL COUNT(AUTO) 2.59 MIL/uL (4.0-5.2); WHITE BLOOD COUNT (AUTO) 22.4 K/uL (4.3-11.0)
[2021-11-14 04:39] LABS: PLATELET COUNT (AUTO) 28 K/uL (150-450)
[2021-11-14 04:56] LABS: ALBUMIN 1.6 g/dL (3.4-5.0); BILIRUBIN,TOTAL 16.9 mg/dL (0.2-1.0); CALCIUM, SERUM 7.4 mg/dL (8.5-10.1); CREATININE 2.6 mg/dL (0.6-1.3); MAGNESIUM 2.1 mg/dL (1.8-2.4); TOTAL PROTEIN, SERUM 3.8 g/dL (6.4-8.2)
[2021-11-14] MEDS ORDERED: DEXTROSE 50%-WATER 50 ML DISP.SYRIN IVP ONE (05:30)
[2021-11-14 05:33] LABS: POTASSIUM 3.8 mmol/L (3.5-5.1)
[2021-11-14 05:49] LABS: BAND % (MANUAL) 2 % (0.0-5.0); BASOPHILS % (MANUAL) 0 % (0.0-2.0); EOSINOPHILS % (MANUAL) 1 % (0-4); MONOCYTES % (MANUAL) 3 % (0-11.0); NEUTROPHILS % (MANUAL) 89 (42-76)
[2021-11-14 05:50] LABS: LYMPHOCYTES % (MANUAL) 5 % (16-48)
[2021-11-14 05:50] LABS: D-DIMER 18.12 mg/L(FEU (0.17-0.50)
--- NOTE | 2021-11-14 06:32 | NUR ---
RN NOTE Reported BS was 24. Informed md supervisor bakery sanitation. new order of D50 INJ. new order noted and carried out. BS rechecked and was 81.
--- NOTE | 2021-11-14 08:50 | NUR ---
RN NOTES: VERIFIED WITH DR. GUARDADO IF DUE ORAL/NGT MEDS ARE TO BE GIVEN SINCE PATIENT'S NGT HAS BEEN CONNECTED TO LOW INTERMITTENT SUCTION PER MEDICARE SALES EXECUTIVE [facility] THIS MORNING. MD WITH NEW ORDER TO DISCONNECT NGT FROM SUCTION AND KEEP GT FEEDING ON HOLD AND GIVE ORAL MEDS VIA NGT ORDERED. WILL CARRY OUT MD ORDER.
[2021-11-14] MEDS: PANTOPRAZOLE 40 MG/PACK PACK GT SCH (09:09)
[2021-11-14] MEDS: ENSURE ENLIVE 237 ML LIQUID (VANILLA) PO SCH (09:10)
[2021-11-14] MEDS: PROSOURCE / PROSTAT (PYXIS) 30 ML UDC PO SCH ×3 (09:10→16:29)
[2021-11-14] MEDS: DOXYCYCLINE 100 MG in IV D5W 100 ML IV SCH ×2 (09:12→20:03)
[2021-11-14] MEDS: MEROPENEM 1 G in IV NS 0.9% 100 ML IV SCH ×2 (09:12→21:02)
--- NOTE | 2021-11-14 09:25 | NUR ---
SS note: SS consult requested by family from [place] requesting letter for immigration to [place] them permission to visit patient for end-of-life care reasons. SW completed letter and emailed it to patient's mother, Aleksandra Hunter & brother, Adonay Alaniz at
[2021-11-14] MEDS ORDERED: Sodium Bicarbonate 100 MEQ in IV D5 / 0.2% NACL 1,000 ML IV SCH ×2 (09:52→17:00)
[2021-11-14] MEDS ORDERED: Sodium Bicarbonate 100 MEQ in IV D5 / 0.2% NACL 1,000 ML IV PRN ×2 (10:30→17:00)
[2021-11-14] MEDS ORDERED: VASOPRESSIN INJ 40 UNIT in IV NS 0.9% 38 ML IV PRN ×2 (10:30→11:00)
[2021-11-14] MEDS ORDERED: diphenhydrAMINE HCL 50 MG/ML VIAL IV ONE (16:30)
--- NOTE | 2021-11-14 17:09 | NUR ---
UNABLE TO OBTAIN VSIGNS; ASYSTOLE; NO PALPABLE PULSE; GEOGRAPHY PROFESSOR ACTIVATED: PLEASE SEE THE CODE ARREST FORM FOR DETAILS.
--- NOTE | 2021-11-14 17:24 | NUR ---
RT called for desaturation. code blue called. cpr performed and rosc acheived. pt placed back on vent.
[2021-11-14] MEDS ORDERED: DEXTROSE 50%-WATER 50 ML DISP.SYRIN IV ONE (17:25)
[2021-11-14] MEDS ORDERED: SODIUM BICARBONATE SYR 50 MEQ/50 ML DISP.SYRIN IV ONE (17:25)
[2021-11-14] MEDS ORDERED: EPINEPHRINE (1:10,000) SYRINGE 1 MG/10 ML DISP.SYRIN IVP ONE (17:25)
[2021-11-14] MEDS ORDERED: CALCIUM CHLORIDE 1,000 MG/10 ML DISP.SYRIN IV ONE (17:25)
--- NOTE | 2021-11-14 19:30 | NUR ---
NETWORK ANALYST RCD PT FULL CODE; S/P CODE BLUE. NSR ON MONITOR W/WEAK PULSES NOTED ON ALL THROUGHOUT. MAX ON LEVOPHED, RAY AND VASOPRESSIN; UNABLE TO OBTAIN BP AUTOMATIC/MANUAL. PUPILS FIXED AT 8MM SCLERA IS YELLOW. PT IS JAUNDICED. FAMILY WISHES FOR FULL CODE. MD AWARE OF PT CONDITION. Addendum: 11/14/21 at 2110 by KENTRELL ZHOU RN ACITVELY BLEEDING FROM THE MOUTH
--- NOTE | 2021-11-14 20:00 | NUR ---
LEAD DENTAL ASSISTANT TEMP 85.2 INCREASED LEROY HUGGER TO HIGH
--- NOTE | 2021-11-14 21:55 | NUR ---
RAILROAD CAR LETTERER PT S/P CODE BLUE; ROSC ACHIEVED.
[2021-11-14] MEDS ORDERED: Sodium Chloride 154 MEQ in IV 10% DEXTROSE 1,000 ML IV PRN (22:00)
[2021-11-14] MEDS: DEXTROSE 50%-WATER 50 ML DISP.SYRIN IVP PRN ×2 (22:17→23:23)
[2021-11-14] MEDS ORDERED: IV 10% DEXTROSE 1,000 ML IV PRN (23:00)
[2021-11-15] VITALS: BP 50/17
--- NOTE | 2021-11-15 00:01 | NUR ---
WAREHOUSE OPERATIONS ASSOCIATE NOTIFIED BROTHER JALEN LOJA [phone] OF PTS ; HE SAID HE WILL NOTIFY MOTHER. NO MORTUARY INFO AT THIS TIME.
--- NOTE | 2021-11-15 00:06 | NUR ---
MOTO MIX OPERATOR PT PRONOUNCED AT THIS TIME S/P CODE BLUE; PT NOTED ASYSTOLE ON MONITOR. CODE BLUE CALLED PER ACLS. PT MAXED ON 3 PRESSORS. UNABLE TO ACHIEVE ROSC.
--- NOTE | 2021-11-15 00:17 | NUR ---
SUPERVISOR DENTAL LABORATORY BODY RELEASED BY [facility]; S/W ROQUE CC [phone]
--- NOTE | 2021-11-15 00:45 | NUR ---
MUSEUM SECURITY CHIEF POST MORTEM CARE RENDERED; BODY AND BELONGINGS TAKEN TO AMANDEEP TAMEZ.
[2021-11-15] MEDS ORDERED: EPINEPHRINE (1:1000) 1 MG/ML AMPUL SUBCUT ONE (00:56)
[2021-11-15] MEDS ORDERED: DEXTROSE 50%-WATER 50 ML VIAL IV ONE (00:56)
[2021-11-15] MEDS ORDERED: CALCIUM CHLORIDE 1,000 MG/10 ML DISP.SYRIN IV ONE (00:56)
[2021-11-15] MEDS ORDERED: SODIUM BICARBONATE SYR 50 MEQ/50 ML DISP.SYRIN IV ONE (00:56)
== END 2021-11-15 00:57 | DRG 248 ==
LOC: ER 21:33 → TELE1 11-01 00:24 → MEDSG1 11-01 02:12 → MED 11-04 01:13 → ICU 11-09 10:04
PROVIDERS: ADMIT Nurse Practitioner Acute Care; ATTEND Internal Medicine
PROC: 0W9G3ZZ Drainage of Peritoneal Cavity, Percutaneous Approach (ICD-10-PCS; principal; 2021-11-02)
PROC: 0W9G3ZZ Drainage of Peritoneal Cavity, Percutaneous Approach (ICD-10-PCS; 2021-11-02)
PROC: 02HV33Z Insertion of Infusion Device into Superior Vena Cava, Percutaneous Approach (ICD-10-PCS; 2021-11-09)
PROC: B548ZZA Ultrasonography of Superior Vena Cava, Guidance (ICD-10-PCS; 2021-11-09)
PROC: 5A1955Z Respiratory Ventilation, Greater than 96 Consecutive Hours (ICD-10-PCS; 2021-11-10)
PROC: 0BH18EZ Insertion of Endotracheal Airway into Trachea, Via Natural or Artificial Opening Endoscopic (ICD-10-PCS; 2021-11-10)
PROC: 5A2204Z Restoration of Cardiac Rhythm, Single (ICD-10-PCS; 2021-11-10)
PROC: 30233N1 Transfusion of Nonautologous Red Blood Cells into Peripheral Vein, Percutaneous Approach (ICD-10-PCS; 2021-11-11)
PROC: 30233K1 Transfusion of Nonautologous Frozen Plasma into Peripheral Vein, Percutaneous Approach (ICD-10-PCS; 2021-11-12)
DX: K65.2 Spontaneous bacterial peritonitis (principal); J96.01 Acute respiratory failure with hypoxia; N17.0 Acute kidney failure with tubular necrosis; D65 Disseminated intravascular coagulation [defibrination syndrome]; J69.0 Pneumonitis due to inhalation of food and vomit; A41.9 Sepsis, unspecified organism; R65.21 Severe sepsis with septic shock; K70.40 Alcoholic hepatic failure without coma; R64 Cachexia; I46.9 Cardiac arrest, cause unspecified; E43 Unspecified severe protein-calorie malnutrition; E87.1 Hypo-osmolality and hyponatremia; N39.0 Urinary tract infection, site not specified; E87.6 Hypokalemia; Z20.822 Contact with and (suspected) exposure to COVID-19; K70.31 Alcoholic cirrhosis of liver with ascites; K76.6 Portal hypertension; E83.42 Hypomagnesemia; E87.2 Acidosis; E88.09 Other disorders of plasma-protein metabolism, not elsewhere classified; J91.8 Pleural effusion in other conditions classified elsewhere; Z88.6 Allergy status to analgesic agent; Z88.5 Allergy status to narcotic agent; F10.10 Alcohol abuse, uncomplicated; Y90.9 Presence of alcohol in blood, level not specified; D53.9 Nutritional anemia, unspecified; D68.9 Coagulation defect, unspecified; B96.20 Unspecified Escherichia coli [E. coli] as the cause of diseases classified elsewhere; K82.9 Disease of gallbladder, unspecified; E11.649 Type 2 diabetes mellitus with hypoglycemia without coma; J98.11 Atelectasis; B96.89 Other specified bacterial agents as the cause of diseases classified elsewhere; K81.0 Acute cholecystitis
CPT/HCPCS: 31720; 36415; 36600; 71045-TC; 74150-TC; 74181-TC; 76705-TC; 76770-TC; 76942-TC; 78226; 80048-TC; 80053-TC; 80061-TC; 80076-TC; 81001; 82040-TC; 82140-TC; 82570-TC; 82607-TC; 82728-TC; 82784; 82803-TC; 82962-TC; 83540-TC; 83605-TC; 83690-TC; 83735-TC; 84100-TC; 84155; 84165; 84300-TC; 84484-TC; 84703-TC; 85025-TC; 85027-TC; 85385-TC; 85396; 85730-TC; 86140-TC; 86225; 86235; 86334; 86431-TC; 86706; 86803; 86850-TC; 87040-TC; 87070-TC; 87081-TC; 87086-TC; 87186-TC; 87340; 89051-TC; 92950-TC; 94002-TC; 94003-TC; 94760-TC; 94799-TC; 97535-TC; A4216; A6253; A6403; A9537; C9113; C9803; G0378; J0171; J0690; J0696; J2185; J2370; J2405; J2543; J3370; J3430; J3475; J3480; J3490; J7030; J7040; J7042; J7050; J7060; J7070; J7120; P9016; P9017; P9047